=== PATIENT | female | born 1935 | race Caucasian/White ===

== ENCOUNTER 2017-08-15 18:24 | Inpatient (IN) | payer MEDICARE, BC ==
[~2017-08-15] VITALS: Ht 157.5 cm; Wt 65.8 kg
[2017-08-15 19:30] VITALS: BP 157/47
[2017-08-15 20:30] VITALS: BP 148/63
[2017-08-15] MEDS ORDERED: [UNRECOGNIZED DRUG - CODE] GT (21:12)
[2017-08-15] MEDS ORDERED: SITA50TA GT (21:12)
[2017-08-15] MEDS ORDERED: FURO40TA5 GT (21:12)
[2017-08-15] MEDS ORDERED: METO75TA GT (21:12)
[2017-08-15] MEDS ORDERED: PYRI60TA2 GT (21:12)
[2017-08-15] MEDS ORDERED: ASPI-612 RC (21:12)
[2017-08-15] MEDS ORDERED: AMLO10TA2 GT (21:12)
[2017-08-15] MEDS ORDERED: PIPE3.376 IV (21:12)
[2017-08-15] MEDS ORDERED: GLYC2TAB2 GT (21:12)
[2017-08-15] MEDS ORDERED: PRED20TA GT (21:12)
[2017-08-15] MEDS ORDERED: PYRI60TA2 IV (21:51)
[2017-08-15] MEDS ORDERED: hydrALAZINE HCL 25 MG TABLET GT PRN (22:45)
[2017-08-15] MEDS ORDERED: BISACODYL 10 MG SUPP.RECT RC PRN (22:45)
[2017-08-15] MEDS ORDERED: DEXTROSE 50% 50 ML DISP.SYRIN IV PRN (22:45)
[2017-08-15] MEDS ORDERED: ALBUTEROL SULFATE 2.5 MG/3 ML NEBU NEB PRN (22:45)
[2017-08-15] MEDS ORDERED: Z GUARD REMEDY PASTE 57 GM TUBE TOP PRN (23:00)
--- NOTE | 2017-08-15 23:00 | NUR ---
Received pt resting in bed at the beginning of shift. AAO x4. As per day shift RN, pt arrived in the unit at 1800. On 4L O2, saturation of 97%. Pt stated that she had SOB in SOH. Pt also has G- tube in placed, patent and receiving Glucerna 30 mL/hr. IV site on right hand 22 gauge, patent and intact. Howell catheter noted, draining well with yellow colored urine. Pertinent assessments done. MRSA swab sent to lab. Med recon done. Belonging's list placed in chart. Safety measures maintained. Call light and personal belongings within reach. Will continue to monitor.
[2017-08-15] MEDS ORDERED: PIPERACILLIN SODIUM/TAZO 3.375 GM VIAL IV SCH (23:30)
[2017-08-15] MEDS ORDERED: PYRIDOSTIGMINE BROMIDE 60 MG TABLET ONE (23:32)
[2017-08-15] MEDS ORDERED: PIPERACILLIN/TAZOBACTAM/D5W 50 ML IV ONE (23:32)
[2017-08-15] MEDS: PYRIDOSTIGMINE BROMIDE 60 MG TABLET GT SCH (23:43)
[2017-08-16] MEDS: BLOOD SUGAR DIAGNOSTIC 1 EACH STRIP VI SCH ×5 (00:16→23:35)
[2017-08-16] MEDS ORDERED: PIPERACILLIN/TAZOBACTAM/D5W 50 ML IV ONE (00:30)
[2017-08-16] MEDS: INSULIN REGULAR, HUMAN 300 UNIT/3 ML VIAL SQ PRN ×5 (00:31→23:26)
[2017-08-16 06:41] VITALS: BP 145/52
[2017-08-16 07:48] LABS: BASOPHILS # (AUTO) 0.1 K/uL (0.0-8.0); BASOPHILS % (AUTO) 0.8 % (0.0-2.0); EOSINOPHILS # (AUTO) 0.3 K/uL (0.0-0.7); EOSINOPHILS % (AUTO) 2.2 % (0.0-7.0); HEMATOCRIT 33.9 % (31.2-41.9); LYMPHOCYTES # (AUTO) 2.4 K/uL (20.0-40.0); MEAN CORPUSCULAR HEMOGLOBIN 29.3 uug (24.7-32.8); MEAN CORPUSCULAR HGB CONC 32 g/dL (32.3-35.6); MEAN CORPUSCULAR VOLUME 90.3 fL (75.5-95.3); MONOCYTES # (AUTO) 1.1 K/uL (2.0-10.0); MONOCYTES % (AUTO) 9.4 % (0.0-11.0); NEUTROPHILS % (AUTO) 67.6 % (38.5-71.5); PLATELET COUNT (AUTO) 377 K/uL (179-408); RED BLOOD CELL COUNT(AUTO) 3.75 MIL/uL (3.63-4.92); WHITE BLOOD COUNT (AUTO) 11.8 K/uL (3.8-11.8)
[2017-08-16 07:55] LABS: *BILIRUBIN,URIN NEGATIVE (NEGATIVE); *BLOOD, URINE 2+ (NEGATIVE); *CLARITY,URINE SLIGHTLY CLOUDY (CLEAR); *COLOR,URINE YELLOW (YELLOW); *KETONES,URINE NEGATIVE (NEGATIVE); *PROTEIN,URINE 1+ (NEGATIVE); *UROBILINOGEN,URINE 0.2 E.U./dl (NORMAL); LEUKOCYTE ESTERASE ,URINE NEGATIVE (NEGATIVE); NITRITE, URINE NEGATIVE (NEGATIVE); UGLUCOSE NEGATIVE (NEGATIVE)
[2017-08-16 07:58] LABS: BACTERIA,URINE FEW /HPF (NONE SEEN); RBC,URINE 80-100 /HPF (0-3); SQUAMOUS EPITHELIAL CELL,UR FEW /HPF (NONE SEEN)
[2017-08-16] MEDS ORDERED: Medication Not On Formulary EA (Glycopyrrolate 1 MG) GT SCH (08:00)
[2017-08-16] MEDS ORDERED: PIPERACILLIN SODIUM/TAZO 3.375 GM VIAL IV SCH (08:00)
[2017-08-16 08:09] LABS: IRON, SERUM 34 ug/dL (50-175)
[2017-08-16 08:14] VITALS: BP 151/62
[2017-08-16 08:35] LABS: ALANINE AMINOTRANSFERASE 19 U/L (14-59); ALKALINE PHOSPHATASE 108 U/L (50-136); ASPARTATE AMINOTRANSFERASE 15 U/L (15-37); BILIRUBIN,TOTAL 0.2 mg/dL (0.2-1.0); CARBON DIOXIDE 39 mmol/L (21-32); CHLORIDE 100 mmol/L (98-107); CHOLESTEROL 232 mg/dL (<200); CREATININE 1.1 mg/dL (0.6-1.3); GLUCOSE 220 mg/dL (74-106); HDL CHOLESTEROL 36 mg/dL (40-60); MAGNESIUM 2.6 mg/dL (1.8-2.4); PHOSPHOROUS 4.2 mg/dL (2.5-4.9); POTASSIUM 3.7 mmol/L (3.5-5.1); TOTAL PROTEIN, SERUM 7.1 g/dL (6.4-8.2); TRIGLYCERIDES 234 MG/DL (30-150); UREA NITROGEN, BLOOD 27 mg/dL (7-18)
[2017-08-16 08:58] LABS: THYROID STIMULATING HORMONE 0.338 mIU/mL (0.358-3.740)
[2017-08-16] MEDS ORDERED: MULTIVITAMINS 5 ML LIQUID UDC GT SCH (09:00)
[2017-08-16] MEDS: PIPERACILLIN/TAZOBACTAM/D5W 3.375 G in PREMIXED 1 EACH IV SCH ×3 (10:23→21:08)
[2017-08-16] MEDS: MULTIVITAMINS,THERAPEUTIC TABLET GT SCH (10:33)
[2017-08-16] MEDS: ACIDOPHILUS/BULGARICUS CHEW TAB GT SCH ×2 (10:33→20:56)
[2017-08-16] MEDS: predniSONE 20 MG TABLET GT SCH (10:35)
[2017-08-16] MEDS: AMLODIPINE 10 MG TABLET GT SCH (10:36)
[2017-08-16] MEDS: METOPROLOL TARTRATE 50 MG TABLET GT SCH ×2 (10:36→20:57)
[2017-08-16] MEDS: GLYCOPYRROLATE 1 MG TABLET GT SCH ×3 (10:37→17:19)
[2017-08-16] MEDS: PYRIDOSTIGMINE BROMIDE 60 MG TABLET GT SCH ×3 (10:37→17:20)
[2017-08-16] MEDS: FUROSEMIDE 40 MG TABLET GT SCH (10:37)
[2017-08-16] MEDS ORDERED: GLUCERNA 1.2 1000ML LIQUID GT PRN (11:45)
[2017-08-16] MEDS ORDERED: SITAGLIPTIN PHOSPHATE 50 MG TABLET GT SCH (12:45)
[2017-08-16] MEDS: LINAGLIPTIN 5 MG TABLET GT SCH (13:33)
[2017-08-16 16:50] VITALS: BP 100/58
[2017-08-16] MEDS ORDERED: ALBUTEROL SULFATE 2.5 MG/ 0.5 ML NEBU NEB PRN (17:00)
[2017-08-16] MEDS ORDERED: IPRATROPIUM BROMIDE 0.5 MG/2.5 ML NEBU NEB PRN (17:00)
[2017-08-16] MEDS ORDERED: DEXTROSE 50% 50 ML DISP.SYRIN IV PRN (17:15)
--- NOTE | 2017-08-16 18:54 | NUR ---
SBAR report received this morning, board updated. Pt assessed. No acute distress noted. Productive cough evident. VS WNL. Pt compliant with all routine medication administration, via GTube. PRN breathing Tx provided once as needed. Pt seen by MD. All comfort and safety measures implemented throughout this shift. Call light and personal items placed within reach. Family members visiting at the bedside currently. Will continue to monitor and endorse to oncoming manager shift.
[2017-08-16] MEDS: ALBUTEROL SULFATE 2.5 MG/ 0.5 ML NEBU NEB SCH (19:30)
[2017-08-16] MEDS: IPRATROPIUM BROMIDE 0.5 MG/2.5 ML NEBU NEB SCH (19:30)
--- NOTE | 2017-08-16 19:50 | NUR ---
Received pt resting in bed. AAO x3. Family at bedside. No acute distress noted. On 3L O2 via NC, tolerating well. Glucerna running at 30 mL/ hr via G- tube. IV line patent and intact. Howell catheter draining well with yellow colored urine. Safety measures maintained. Call light and personal belongings within reach. Will continue to monitor.
[2017-08-16 20:28] VITALS: BP 139/52
[2017-08-16] MEDS: ATORVASTATIN 20 MG TABLET GT SCH (20:56)
[2017-08-17] MEDS: IPRATROPIUM BROMIDE 0.5 MG/2.5 ML NEBU NEB SCH ×4 (00:46→19:17)
[2017-08-17] MEDS: ALBUTEROL SULFATE 2.5 MG/ 0.5 ML NEBU NEB SCH ×4 (00:46→19:17)
[2017-08-17 05:00] VITALS: BP 138/48
[2017-08-17] MEDS: BLOOD SUGAR DIAGNOSTIC 1 EACH STRIP VI SCH ×3 (05:05→18:12)
[2017-08-17] MEDS: INSULIN REGULAR, HUMAN 300 UNIT/3 ML VIAL SQ PRN ×3 (05:06→18:23)
[2017-08-17] MEDS: PIPERACILLIN/TAZOBACTAM/D5W 3.375 G in PREMIXED 1 EACH IV SCH ×3 (05:27→21:42)
--- NOTE | 2017-08-17 07:53 | NUR ---
SBAR report received, board updated. Pt assessed AAO x3. No acute distress or SOB noted at this time. Pt breathing easily on 3L NC. Glucerna running at 30ml/hr via G tube. IV line on right forearm patent and intact. No c/o pain. All safety and comfort measures implemented. Bed in locked and lowest position with side rails up x2. Call light placed within reach. Will continue to monitor.
[2017-08-17 07:57] VITALS: BP 136/53
[2017-08-17] MEDS ORDERED: LINAGLIPTIN 5 MG TABLET PO SCH (09:00)
[2017-08-17] MEDS: MULTIVITAMINS,THERAPEUTIC TABLET GT SCH (09:48)
[2017-08-17] MEDS: predniSONE 20 MG TABLET GT SCH (09:48)
[2017-08-17] MEDS: ACIDOPHILUS/BULGARICUS CHEW TAB GT SCH ×2 (09:48→21:42)
[2017-08-17] MEDS: FUROSEMIDE 40 MG TABLET GT SCH (09:49)
[2017-08-17] MEDS: METOPROLOL TARTRATE 50 MG TABLET GT SCH ×2 (09:49→21:42)
[2017-08-17] MEDS: GLYCOPYRROLATE 1 MG TABLET GT SCH ×3 (09:49→18:00)
[2017-08-17] MEDS: PYRIDOSTIGMINE BROMIDE 60 MG TABLET GT SCH ×3 (09:49→18:00)
[2017-08-17] MEDS: LINAGLIPTIN 5 MG TABLET GT SCH (09:49)
[2017-08-17] MEDS: AMLODIPINE 10 MG TABLET GT SCH (09:50)
[2017-08-17 20:50] VITALS: BP 128/63
[2017-08-17] MEDS: ATORVASTATIN 20 MG TABLET GT SCH (21:42)
[2017-08-17] MEDS: MELATONIN 3 MG TABLET PO SCH (21:49)
[2017-08-18] MEDS: BLOOD SUGAR DIAGNOSTIC 1 EACH STRIP VI SCH ×5 (00:14→23:44)
[2017-08-18] MEDS: IPRATROPIUM BROMIDE 0.5 MG/2.5 ML NEBU NEB SCH ×5 (01:25→20:26)
[2017-08-18] MEDS: ALBUTEROL SULFATE 2.5 MG/ 0.5 ML NEBU NEB SCH ×5 (01:25→20:26)
--- NOTE | 2017-08-18 04:37 | NUR ---
awake alert and oriented x4 admitted for myasthenia gravis. Fall precautions maintained. siderails up for safety. Patient on tubefeedings. Gtube intact, on Glucerna @30ml/hr. HOB at all times. NPO maintained. On blood sugar check q6hrs. 12mn BS 123. Howell catheter intact draining yellow urine. I & O monitor.Repositioned for comfort. Turned to sides. Right arm INT, on IV Zosyn for pnemonia. No ill effects noted. Respiratory treatment given by therapist. VSS. pulse ox 96% on 4L O2 via nasal cannula. no respiratory distress noted. Will monitor patient.
[2017-08-18] MEDS: PIPERACILLIN/TAZOBACTAM/D5W 3.375 G in PREMIXED 1 EACH IV SCH ×3 (05:29→21:45)
[2017-08-18] MEDS: INSULIN REGULAR, HUMAN 300 UNIT/3 ML VIAL SQ PRN ×3 (05:40→17:53)
[2017-08-18 05:59] VITALS: BP 119/58
[2017-08-18 08:00] VITALS: BP 107/46
[2017-08-18 08:00] LABS: BASOPHILS # (AUTO) 0.1 K/uL (0.0-8.0); BASOPHILS % (AUTO) 0.6 % (0.0-2.0); EOSINOPHILS # (AUTO) 0.3 K/uL (0.0-0.7); HEMATOCRIT 33.1 % (31.2-41.9); HEMOGLOBIN 11.1 g/dL (10.9-14.3); LYMPHOCYTES # (AUTO) 2.5 K/uL (20.0-40.0); LYMPHOCYTES % (AUTO) 17.6 % (20.5-51.5); MEAN CORPUSCULAR HGB CONC 33 g/dL (32.3-35.6); MEAN CORPUSCULAR VOLUME 89.7 fL (75.5-95.3); MONOCYTES # (AUTO) 1.1 K/uL (2.0-10.0); MONOCYTES % (AUTO) 7.8 % (0.0-11.0); NEUTROPHILS # (AUTO) 10.3 K/uL (1.8-8.9); PLATELET COUNT (AUTO) 390 K/uL (179-408); RED BLOOD CELL COUNT(AUTO) 3.69 MIL/uL (3.63-4.92); WHITE BLOOD COUNT (AUTO) 14.3 K/uL (3.8-11.8)
[2017-08-18 08:10] LABS: CHLORIDE 99 mmol/L (98-107); CREATININE 1.4 mg/dL (0.6-1.3); GLUCOSE 155 mg/dL (74-106); POTASSIUM 3.4 mmol/L (3.5-5.1); UREA NITROGEN, BLOOD 35 mg/dL (7-18)
[2017-08-18 08:15] LABS: CARBON DIOXIDE 41 mmol/L (21-32)
--- NOTE | 2017-08-18 08:51 | NUR ---
SBAR report received, board updated. Pt assessed, no acute distress. Critical lab value of carbon dioxide 41 from lab. Epic called, left message. will continue to monitor and follow up. All needs attended to at this time. Bed in locked and lowest position with call light in reach. Will continue to monitor.
[2017-08-18] MEDS: AMLODIPINE 10 MG TABLET GT SCH (09:00)
[2017-08-18] MEDS: METOPROLOL TARTRATE 50 MG TABLET GT SCH ×2 (09:00→21:36)
--- NOTE | 2017-08-18 09:37 | NUR ---
Pt in acute distress, resting in bed, breathing unlabored. MD special technical operations officer paged again, awaiting follow up orders. Will continue to monitor.
[2017-08-18] MEDS: LINAGLIPTIN 5 MG TABLET GT SCH (10:16)
[2017-08-18] MEDS: GLYCOPYRROLATE 1 MG TABLET GT SCH ×3 (10:16→17:38)
[2017-08-18] MEDS: PYRIDOSTIGMINE BROMIDE 60 MG TABLET GT SCH ×3 (10:16→17:39)
[2017-08-18] MEDS: ACIDOPHILUS/BULGARICUS CHEW TAB GT SCH ×2 (10:16→21:38)
[2017-08-18] MEDS: predniSONE 20 MG TABLET GT SCH (10:17)
[2017-08-18] MEDS: FUROSEMIDE 40 MG TABLET GT SCH (10:17)
[2017-08-18] MEDS: MULTIVITAMINS,THERAPEUTIC TABLET GT SCH (10:23)
[2017-08-18] MEDS ORDERED: POTASSIUM CHLORIDE 50 ML IV SCH (14:15)
[2017-08-18] MEDS ORDERED: POTASSIUM CHLORIDE 20 MEQ POWDER PACKET GT ONE (15:15)
[2017-08-18 16:00] VITALS: BP 131/47
[2017-08-18 20:11] VITALS: BP 139/49
[2017-08-18] MEDS: ATORVASTATIN 20 MG TABLET GT SCH (21:35)
[2017-08-18] MEDS: MELATONIN 3 MG TABLET PO SCH (21:38)
[2017-08-19] MEDS: ALBUTEROL SULFATE 2.5 MG/ 0.5 ML NEBU NEB SCH ×4 (02:46→20:08)
[2017-08-19] MEDS: IPRATROPIUM BROMIDE 0.5 MG/2.5 ML NEBU NEB SCH ×4 (02:46→20:07)
[2017-08-19] MEDS: PIPERACILLIN/TAZOBACTAM/D5W 3.375 G in PREMIXED 1 EACH IV SCH ×3 (05:51→21:03)
[2017-08-19 05:59] VITALS: BP 144/68
[2017-08-19] MEDS: BLOOD SUGAR DIAGNOSTIC 1 EACH STRIP VI SCH ×4 (05:59→23:19)
--- NOTE | 2017-08-19 06:33 | NUR ---
Report received from day shift nurse , Pt slept most of the night , Changed new Supplement of Glycerna to her G tube at 30 mL / hr . pt does self suction , A & O x 4 , pt received Zosyn at 2200 and then at 0600 , Pt had a blood sugar of 98 and required no coverage . At 0600 , pt had a blood sugar of 137 . Pt c/o of right ear pain towards the end of the shift , will continue to monitor and endorse to day shift. Crushed meds and given in the G tube at 2100 and flushed the G tube before and after giving meds
[2017-08-19 07:12] LABS: BASOPHILS # (AUTO) 0.1 K/uL (0.0-8.0); BASOPHILS % (AUTO) 0.9 % (0.0-2.0); EOSINOPHILS # (AUTO) 0.2 K/uL (0.0-0.7); EOSINOPHILS % (AUTO) 1.8 % (0.0-7.0); HEMATOCRIT 32.8 % (31.2-41.9); HEMOGLOBIN 10.7 g/dL (10.9-14.3); LYMPHOCYTES # (AUTO) 2.1 K/uL (20.0-40.0); LYMPHOCYTES % (AUTO) 19.3 % (20.5-51.5); MEAN CORPUSCULAR HEMOGLOBIN 29.4 uug (24.7-32.8); MEAN CORPUSCULAR HGB CONC 33 g/dL (32.3-35.6); MEAN CORPUSCULAR VOLUME 90.2 fL (75.5-95.3); MONOCYTES # (AUTO) 0.8 K/uL (2.0-10.0); MONOCYTES % (AUTO) 7.6 % (0.0-11.0); NEUTROPHILS # (AUTO) 7.5 K/uL (1.8-8.9); NEUTROPHILS % (AUTO) 70.4 % (38.5-71.5); PLATELET COUNT (AUTO) 402 K/uL (179-408); RED BLOOD CELL COUNT(AUTO) 3.64 MIL/uL (3.63-4.92); WHITE BLOOD COUNT (AUTO) 10.7 K/uL (3.8-11.8)
[2017-08-19 07:22] LABS: CHLORIDE 101 mmol/L (98-107); CREATININE 1.3 mg/dL (0.6-1.3); GLUCOSE 155 mg/dL (74-106); POTASSIUM 3.6 mmol/L (3.5-5.1); UREA NITROGEN, BLOOD 31 mg/dL (7-18)
[2017-08-19 07:31] LABS: CARBON DIOXIDE 40 mmol/L (21-32)
--- NOTE | 2017-08-19 07:35 | NUR ---
Critical lab of CO2-40. Informed Dr Park, no new orders at this time.
[2017-08-19] MEDS: INSULIN REGULAR, HUMAN 300 UNIT/3 ML VIAL SQ PRN ×4 (08:07→23:20)
[2017-08-19 08:35] VITALS: BP 137/44
[2017-08-19] MEDS: predniSONE 20 MG TABLET GT SCH (09:00)
[2017-08-19] MEDS: ACIDOPHILUS/BULGARICUS CHEW TAB GT SCH ×2 (09:00→20:35)
[2017-08-19] MEDS: MULTIVITAMINS,THERAPEUTIC TABLET GT SCH (09:00)
[2017-08-19] MEDS: PYRIDOSTIGMINE BROMIDE 60 MG TABLET GT SCH ×3 (09:04→18:00)
[2017-08-19] MEDS: GLYCOPYRROLATE 1 MG TABLET GT SCH ×3 (09:04→18:00)
[2017-08-19] MEDS: FUROSEMIDE 40 MG TABLET GT SCH (09:04)
[2017-08-19] MEDS: LINAGLIPTIN 5 MG TABLET GT SCH (09:05)
[2017-08-19] MEDS: AMLODIPINE 10 MG TABLET GT SCH (09:06)
[2017-08-19] MEDS: METOPROLOL TARTRATE 50 MG TABLET GT SCH ×2 (09:06→20:36)
--- NOTE | 2017-08-19 10:30 | NUR ---
Paged LYNNETTE Worthy for critical lab, awaiting for call back.
[2017-08-19] MEDS: ACETAMINOPHEN 325 MG TABLET PO PRN (10:34)
--- NOTE | 2017-08-19 14:15 | NUR ---
SEEN AND EXAMINED BY DR. LEWIS. INCREASED TUBE FEEDING TO 50 MLS/HR.
[2017-08-19] MEDS ORDERED: GLUCERNA 1.2 1000ML LIQUID GT PRN (16:00)
[2017-08-19] MEDS: GUAIFENESIN SUGAR FREE 100 MG/5 ML UDC GT PRN (18:32)
[2017-08-19 20:29] VITALS: BP 137/65
[2017-08-19] MEDS: ATORVASTATIN 20 MG TABLET GT SCH (20:35)
[2017-08-19] MEDS: MELATONIN 3 MG TABLET PO SCH (20:36)
[2017-08-20] MEDS: IPRATROPIUM BROMIDE 0.5 MG/2.5 ML NEBU NEB SCH ×5 (01:45→19:05)
[2017-08-20] MEDS: ALBUTEROL SULFATE 2.5 MG/ 0.5 ML NEBU NEB SCH ×5 (01:45→19:05)
--- NOTE | 2017-08-20 04:26 | NUR ---
on continous Glucerna feedings @ 50ml/hr via G-tube. HOB at all times. On O2 @ 2L via nasal cannula, pulse ox 96%. No respiratory distress noted. Oral suction done by patient, moderate amount of secretions noted. Fall precautions maintained. Incontinent of bowel and bladder. Kept clean and dry. Repositioned for comfort. Turned from sides to sides. afebrile. Right arm INT flushed and patent, IV antibiotics given as scheduled. No ill effects noted. Will monitor patient.
[2017-08-20 05:15] VITALS: BP 143/60
[2017-08-20] MEDS: BLOOD SUGAR DIAGNOSTIC 1 EACH STRIP VI SCH ×4 (05:24→23:12)
[2017-08-20] MEDS: PIPERACILLIN/TAZOBACTAM/D5W 3.375 G in PREMIXED 1 EACH IV SCH ×3 (05:24→21:24)
[2017-08-20] MEDS: INSULIN REGULAR, HUMAN 300 UNIT/3 ML VIAL SQ PRN ×4 (05:26→23:17)
[2017-08-20 08:00] VITALS: BP 154/59
[2017-08-20] MEDS: LINAGLIPTIN 5 MG TABLET GT SCH (08:16)
[2017-08-20] MEDS: ACIDOPHILUS/BULGARICUS CHEW TAB GT SCH ×2 (08:16→21:21)
[2017-08-20] MEDS: GLYCOPYRROLATE 1 MG TABLET GT SCH ×3 (08:16→18:18)
[2017-08-20] MEDS: AMLODIPINE 10 MG TABLET GT SCH (08:16)
[2017-08-20] MEDS: MULTIVITAMINS,THERAPEUTIC TABLET GT SCH (08:17)
[2017-08-20] MEDS: FUROSEMIDE 40 MG TABLET GT SCH (08:17)
[2017-08-20] MEDS: predniSONE 20 MG TABLET GT SCH (08:17)
[2017-08-20] MEDS: METOPROLOL TARTRATE 50 MG TABLET GT SCH ×2 (08:17→21:21)
--- NOTE | 2017-08-20 08:20 | NUR ---
Received patient, awake alert x4. With intact Howell draining to Yellow colored urine. With G-tube feeding, flushed with medications accordingly. Not in any pain. No chest pains or SOB noted. Cough improved from yesterday.
[2017-08-20] MEDS: PYRIDOSTIGMINE BROMIDE 60 MG TABLET GT SCH ×3 (08:22→18:18)
--- NOTE | 2017-08-20 08:59 | NUR ---
Tube feeding changed, Glucerna as ordered.
[2017-08-20] MEDS: ACETAMINOPHEN 325 MG TABLET PO PRN (10:44)
--- NOTE | 2017-08-20 13:47 | NUR ---
INTERDISCIPLINARY TEAM CONFERENCE
--- NOTE | 2017-08-20 15:00 | NUR ---
Patient refused physical therapy and claims she is very tired today and has something on her nostrils. Checked nostrils, instructed patient not scratch inside nostrils too much because it may cause bleeding.
[2017-08-20] MEDS: GLUCERNA 1.2 1000ML LIQUID GT PRN (19:59)
[2017-08-20 20:01] VITALS: BP 156/41
[2017-08-20] MEDS: ATORVASTATIN 20 MG TABLET GT SCH (21:21)
--- NOTE | 2017-08-20 22:09 | NUR ---
Received pt resting in bed. AAO x3. No acute distress noted. On 2L O2 via NC, saturating well. No c/o pain or discomfort. G-tube patent and intact. Meds given as ordered. Howell catheter draining well with yellow colored urine. IV site patent, flushing well. Safety measures maintained. Call light and personal belongings within reach. Will continue to monitor.
[2017-08-20] MEDS: MELATONIN 3 MG TABLET PO SCH (23:18)
[2017-08-20] MEDS: GUAIFENESIN SUGAR FREE 100 MG/5 ML UDC GT PRN (23:19)
[2017-08-21] MEDS: ALBUTEROL SULFATE 2.5 MG/ 0.5 ML NEBU NEB SCH ×4 (01:13→18:56)
[2017-08-21] MEDS: IPRATROPIUM BROMIDE 0.5 MG/2.5 ML NEBU NEB SCH ×4 (01:13→18:56)
[2017-08-21 05:00] VITALS: BP 152/62
[2017-08-21] MEDS: BLOOD SUGAR DIAGNOSTIC 1 EACH STRIP VI SCH ×3 (05:23→17:19)
[2017-08-21] MEDS: INSULIN REGULAR, HUMAN 300 UNIT/3 ML VIAL SQ PRN ×3 (05:24→17:22)
[2017-08-21] MEDS: PIPERACILLIN/TAZOBACTAM/D5W 3.375 G in PREMIXED 1 EACH IV SCH ×3 (05:26→21:23)
[2017-08-21 06:54] LABS: BASOPHILS # (AUTO) 0.1 K/uL (0.0-8.0); BASOPHILS % (AUTO) 0.8 % (0.0-2.0); EOSINOPHILS # (AUTO) 0.3 K/uL (0.0-0.7); EOSINOPHILS % (AUTO) 2.6 % (0.0-7.0); HEMATOCRIT 35.1 % (31.2-41.9); HEMOGLOBIN 11.6 g/dL (10.9-14.3); LYMPHOCYTES # (AUTO) 2.3 K/uL (20.0-40.0); LYMPHOCYTES % (AUTO) 20.8 % (20.5-51.5); MEAN CORPUSCULAR HEMOGLOBIN 29.6 uug (24.7-32.8); MEAN CORPUSCULAR HGB CONC 33 g/dL (32.3-35.6); MEAN CORPUSCULAR VOLUME 89.2 fL (75.5-95.3); MONOCYTES # (AUTO) 0.9 K/uL (2.0-10.0); MONOCYTES % (AUTO) 8.5 % (0.0-11.0); NEUTROPHILS # (AUTO) 7.5 K/uL (1.8-8.9); NEUTROPHILS % (AUTO) 67.3 % (38.5-71.5); PLATELET COUNT (AUTO) 398 K/uL (179-408); RED BLOOD CELL COUNT(AUTO) 3.93 MIL/uL (3.63-4.92); WHITE BLOOD COUNT (AUTO) 11.1 K/uL (3.8-11.8)
[2017-08-21 07:01] LABS: CHLORIDE 100 mmol/L (98-107); CREATININE 1.3 mg/dL (0.6-1.3); GLUCOSE 211 mg/dL (74-106); POTASSIUM 3.4 mmol/L (3.5-5.1); UREA NITROGEN, BLOOD 31 mg/dL (7-18)
[2017-08-21 07:02] LABS: CARBON DIOXIDE 40 mmol/L (21-32)
[2017-08-21] MEDS: ACIDOPHILUS/BULGARICUS CHEW TAB GT SCH ×2 (08:28→21:23)
[2017-08-21] MEDS: FUROSEMIDE 40 MG TABLET GT SCH (08:29)
[2017-08-21] MEDS: METOPROLOL TARTRATE 50 MG TABLET GT SCH ×2 (08:29→21:23)
[2017-08-21] MEDS: MULTIVITAMINS,THERAPEUTIC TABLET GT SCH (08:29)
[2017-08-21] MEDS: PYRIDOSTIGMINE BROMIDE 60 MG TABLET GT SCH ×3 (08:29→17:17)
[2017-08-21] MEDS: AMLODIPINE 10 MG TABLET GT SCH (08:30)
[2017-08-21] MEDS: GLYCOPYRROLATE 1 MG TABLET GT SCH ×3 (08:30→17:17)
[2017-08-21] MEDS: LINAGLIPTIN 5 MG TABLET GT SCH (08:30)
[2017-08-21] MEDS: GLUCERNA 1.2 1000ML LIQUID GT PRN (09:00)
[2017-08-21] MEDS: predniSONE 20 MG TABLET GT SCH (09:27)
[2017-08-21 09:41] VITALS: BP 153/58
--- NOTE | 2017-08-21 10:23 | NUR ---
pt seen on rounding. pt vitals stable. no changes. pt able to verbalize needs. tube feeding changes. will continue to monitor.
[2017-08-21] MEDS: GUAIFENESIN SUGAR FREE 100 MG/5 ML UDC GT PRN (13:10)
[2017-08-21] MEDS ORDERED: POTASSIUM CHLORIDE 20 MEQ POWDER PACKET PO ONE (14:00)
[2017-08-21 20:00] VITALS: BP 110/44
[2017-08-21] MEDS ORDERED: DIAZEPAM 2 MG TABLET GT ONE (20:15)
--- NOTE | 2017-08-21 20:15 | NUR ---
PT EXPLAINED CANNOT SLEEP LAST FEW NIGHT MELATONIN NOT HELPING, SPOKE WITH DR VALLECILLO EXPLAINED SHE DOES NOT WANT AMBIEN AND SHE TAKES 4MG VALIUM AT HOME FOR SLEEP. WILL GIVE MEDICATION ORDERED.
--- NOTE | 2017-08-21 21:00 | NUR ---
PT REQUESTING TO HAVE VALIUM AT 2330 FOR SLEEP. WILL GIVE AT THAT TIME. Addendum: 08/22/17 at 0313 by DIPAK TRAN RN AND ANXIETY
[2017-08-21] MEDS: ATORVASTATIN 20 MG TABLET GT SCH (21:23)
[2017-08-21 21:24] VITALS: BP 151/55
[2017-08-21 21:30] VITALS: BP 151/55
[2017-08-22] VITALS: BP 123/55
[2017-08-22] MEDS: BLOOD SUGAR DIAGNOSTIC 1 EACH STRIP VI SCH ×5 (00:03→23:22)
[2017-08-22] MEDS: INSULIN REGULAR, HUMAN 300 UNIT/3 ML VIAL SQ PRN ×5 (00:10→23:24)
[2017-08-22] MEDS ORDERED: DIAZEPAM 2 MG TABLET ONE (00:11)
[2017-08-22] MEDS: ALBUTEROL SULFATE 2.5 MG/ 0.5 ML NEBU NEB SCH ×4 (01:05→19:16)
[2017-08-22] MEDS: IPRATROPIUM BROMIDE 0.5 MG/2.5 ML NEBU NEB SCH ×4 (01:05→19:16)
[2017-08-22] MEDS: ACETAMINOPHEN 325 MG TABLET PO PRN (04:59)
[2017-08-22] MEDS: PIPERACILLIN/TAZOBACTAM/D5W 3.375 G in PREMIXED 1 EACH IV SCH ×3 (05:00→21:45)
[2017-08-22 05:48] VITALS: BP 160/62
[2017-08-22] MEDS: GLUCERNA 1.2 1000ML LIQUID GT PRN (06:54)
--- NOTE | 2017-08-22 07:19 | NUR ---
PT RESTING IN BED. NO DISTRESS NOTED. BS 144. 2 UNITS GIVEN PER ORDERS. HEAD OF BED ELEVATED, TOLERATING TUBE FEEDING WELL WITH 3CC OF RESIDUAL. MENDOZA DRAINING CLEAR YELLOW URINE. CLEAN AND DRY. TURNED AND REPOSITIONED. SAFETY MAINTAINED. CALL LIGHT WITHIN REACH.
[2017-08-22 08:22] LABS: CARBON DIOXIDE 38 mmol/L (21-32); CHLORIDE 100 mmol/L (98-107); CREATININE 1.5 mg/dL (0.6-1.3); GLUCOSE 146 mg/dL (74-106); POTASSIUM 3.4 mmol/L (3.5-5.1); UREA NITROGEN, BLOOD 38 mg/dL (7-18)
[2017-08-22] MEDS: METOPROLOL TARTRATE 50 MG TABLET GT SCH ×2 (09:00→21:44)
[2017-08-22] MEDS: GUAIFENESIN SUGAR FREE 100 MG/5 ML UDC GT PRN (09:01)
[2017-08-22] MEDS: MULTIVITAMINS,THERAPEUTIC TABLET GT SCH (09:01)
[2017-08-22] MEDS: AMLODIPINE 10 MG TABLET GT SCH (09:04)
[2017-08-22] MEDS: FUROSEMIDE 40 MG TABLET GT SCH (09:04)
[2017-08-22] MEDS: ACIDOPHILUS/BULGARICUS CHEW TAB GT SCH ×2 (09:05→21:44)
[2017-08-22] MEDS: PYRIDOSTIGMINE BROMIDE 60 MG TABLET GT SCH ×3 (09:06→17:35)
[2017-08-22] MEDS: GLYCOPYRROLATE 1 MG TABLET GT SCH ×3 (09:06→17:34)
[2017-08-22] MEDS: LINAGLIPTIN 5 MG TABLET GT SCH (09:06)
[2017-08-22 09:36] VITALS: BP 134/46
[2017-08-22] MEDS: predniSONE 20 MG TABLET GT SCH (13:03)
[2017-08-22] MEDS ORDERED: POTASSIUM CHLORIDE 20 MEQ POWDER PACKET GT ONE (14:15)
[2017-08-22] MEDS ORDERED: DIAZ2TAB PO (16:04)
--- NOTE | 2017-08-22 18:04 | NUR ---
pt stable thoughout the day. pt requested to have valium at night. pt given meds through gtube. feedings tolerated well. intructed family about not giving anything by mouth to patient. pt family continues to be non compliant. pt continues to show productive cough. white and thin secretion. will endorse to sales applications engineer nurse.
--- NOTE | 2017-08-22 19:00 | NUR ---
Awake during initial rounds. Very pleasant and calm. Denies any pain/discomforts at this time. HOB elevated with 2L O2 via NC, saturating 98% .Able to suction self with yankeur. No s/s of aspiration. GT feeding continuos via Enteral pump. No gastric residual obtained at this time. HL on RAC intact and patent , no s/s of infiltration. F/C intact and patent. Continue care as planned.
[2017-08-22] MEDS ORDERED: DIAZEPAM 2 MG TABLET PO PRN (19:30)
[2017-08-22 20:47] VITALS: BP 136/57
[2017-08-22] MEDS ORDERED: DIAZEPAM 2 MG TABLET PO SCH (21:00)
[2017-08-22] MEDS: ATORVASTATIN 20 MG TABLET GT SCH (21:44)
[2017-08-23] MEDS: ALBUTEROL SULFATE 2.5 MG/ 0.5 ML NEBU NEB SCH ×6 (01:00→22:58)
[2017-08-23] MEDS: IPRATROPIUM BROMIDE 0.5 MG/2.5 ML NEBU NEB SCH ×6 (01:00→22:57)
[2017-08-23] MEDS: GUAIFENESIN SUGAR FREE 100 MG/5 ML UDC GT PRN ×2 (04:27→23:14)
[2017-08-23] MEDS: GLUCERNA 1.2 1000ML LIQUID GT PRN (04:37)
--- NOTE | 2017-08-23 04:54 | NUR ---
Awakened complaining of gas discomforts, turned and repositioned to sides. Will monitor.
[2017-08-23 05:16] VITALS: BP 143/64
[2017-08-23] MEDS: PIPERACILLIN/TAZOBACTAM/D5W 3.375 G in PREMIXED 1 EACH IV SCH ×3 (05:47→21:10)
[2017-08-23] MEDS: BLOOD SUGAR DIAGNOSTIC 1 EACH STRIP VI SCH ×4 (05:47→23:25)
--- NOTE | 2017-08-23 06:16 | NUR ---
Shift End Report: VS stable. Slept in between care. No further complaint presented. All needs attended. NO fall/injury. No respiratory distress. No s/s of aspiration. Tolerating GT feeding well. No s/s of hypo/hyperglycemia. No s/s of adverse reaction noted from Zosyn antibiotic. Continue current plan of care.
[2017-08-23 07:44] LABS: NEUTROPHILS % (AUTO) 76.6 % (38.5-71.5); RED BLOOD CELL COUNT(AUTO) 3.68 MIL/uL (3.63-4.92)
[2017-08-23 07:54] LABS: BASOPHILS % (AUTO) 0.3 % (0.0-2.0); EOSINOPHILS # (AUTO) 0.1 K/uL (0.0-0.7); EOSINOPHILS % (AUTO) 0.9 % (0.0-7.0); HEMATOCRIT 32.8 % (31.2-41.9); HEMOGLOBIN 10.7 g/dL (10.9-14.3); LYMPHOCYTES # (AUTO) 2.2 K/uL (20.0-40.0); LYMPHOCYTES % (AUTO) 15.2 % (20.5-51.5); MEAN CORPUSCULAR HEMOGLOBIN 29.2 uug (24.7-32.8); MEAN CORPUSCULAR HGB CONC 33 g/dL (32.3-35.6); MEAN CORPUSCULAR VOLUME 89.2 fL (75.5-95.3); NEUTROPHILS # (AUTO) 11.1 K/uL (1.8-8.9); PLATELET COUNT (AUTO) 365 K/uL (179-408)
[2017-08-23 07:55] LABS: WHITE BLOOD COUNT (AUTO) 14.5 K/uL (3.8-11.8)
--- NOTE | 2017-08-23 07:56 | NUR ---
RECEIVED PATIENT AWAKE, ALERT AND ORIENTEDX4. CONTINUE ON MENDOZA CATHETER INTACT AND GTUBE FEEDING. NO SIGNS OF INFECTION ON SITE. SUCTION PRN. VERBALIZE" IM TIRED, WANT TO SLEEP MORE. NOT IN DISTRESS. VALIUM GIVEN NIGHT TIME. WILL CONTINUE MONITOR
[2017-08-23 08:00] VITALS: BP 122/72
[2017-08-23 08:03] LABS: MAGNESIUM 2.4 mg/dL (1.8-2.4)
[2017-08-23] MEDS: AMLODIPINE 10 MG TABLET GT SCH (08:49)
[2017-08-23] MEDS: FUROSEMIDE 40 MG TABLET GT SCH (08:49)
[2017-08-23] MEDS: METOPROLOL TARTRATE 50 MG TABLET GT SCH ×2 (08:49→20:36)
[2017-08-23] MEDS: ACIDOPHILUS/BULGARICUS CHEW TAB GT SCH ×2 (08:49→20:36)
[2017-08-23] MEDS: MULTIVITAMINS,THERAPEUTIC TABLET GT SCH (08:49)
[2017-08-23] MEDS: LINAGLIPTIN 5 MG TABLET GT SCH (08:51)
[2017-08-23] MEDS: GLYCOPYRROLATE 1 MG TABLET GT SCH ×3 (08:51→17:39)
[2017-08-23] MEDS: PYRIDOSTIGMINE BROMIDE 60 MG TABLET GT SCH ×3 (08:51→17:39)
[2017-08-23] MEDS: predniSONE 20 MG TABLET GT SCH (08:58)
[2017-08-23] MEDS: INSULIN REGULAR, HUMAN 300 UNIT/3 ML VIAL SQ PRN ×3 (11:57→23:24)
[2017-08-23] MEDS: ACETAMINOPHEN 325 MG TABLET PO PRN ×2 (16:28→23:14)
[2017-08-23 16:32] VITALS: BP 119/56
[2017-08-23] MEDS: ATORVASTATIN 20 MG TABLET GT SCH (20:36)
[2017-08-23 20:40] VITALS: BP 134/52
--- NOTE | 2017-08-23 21:49 | NUR ---
resting in bed. alert and oriented x4. needs attended. VSS. gtube intact, on glucerna @ 50ml/hr. HOB up at all times. no acute distress noted. repositioned for comfort. turned q 2hrs. gaona catheter intact draining yellow urine, will d/c gaona in am. kept comfortable. will monitor patient. siderails up for safety.
[2017-08-23] MEDS: MELATONIN 3 MG TABLET PO SCH (23:15)
[2017-08-24] MEDS: PIPERACILLIN/TAZOBACTAM/D5W 3.375 G in PREMIXED 1 EACH IV SCH ×2 (05:20→14:08)
[2017-08-24] MEDS: BLOOD SUGAR DIAGNOSTIC 1 EACH STRIP VI SCH ×4 (05:26→23:52)
[2017-08-24] MEDS: INSULIN REGULAR, HUMAN 300 UNIT/3 ML VIAL SQ PRN ×4 (05:29→23:36)
[2017-08-24 06:36] VITALS: BP 140/58
--- NOTE | 2017-08-24 06:52 | NUR ---
slept well no acute distress noted. needs attended. gaona discontinued as order. kept comfortable.will monitor patient.
[2017-08-24] MEDS ORDERED: GLUCERNA 1.2 1000ML LIQUID GT SCH (07:00)
[2017-08-24] MEDS: IPRATROPIUM BROMIDE 0.5 MG/2.5 ML NEBU NEB SCH ×3 (07:40→20:28)
[2017-08-24] MEDS: ALBUTEROL SULFATE 2.5 MG/ 0.5 ML NEBU NEB SCH ×3 (07:41→20:28)
[2017-08-24 07:44] LABS: BASOPHILS # (AUTO) 0.1 K/uL (0.0-8.0); BASOPHILS % (AUTO) 0.8 % (0.0-2.0); EOSINOPHILS # (AUTO) 0.3 K/uL (0.0-0.7); EOSINOPHILS % (AUTO) 2.8 % (0.0-7.0); HEMATOCRIT 33.2 % (31.2-41.9); HEMOGLOBIN 11.1 g/dL (10.9-14.3); LYMPHOCYTES # (AUTO) 2.5 K/uL (20.0-40.0); LYMPHOCYTES % (AUTO) 23.8 % (20.5-51.5); MEAN CORPUSCULAR HEMOGLOBIN 29.9 uug (24.7-32.8); MEAN CORPUSCULAR HGB CONC 33 g/dL (32.3-35.6); MEAN CORPUSCULAR VOLUME 89.8 fL (75.5-95.3); MONOCYTES # (AUTO) 0.8 K/uL (2.0-10.0); MONOCYTES % (AUTO) 7.5 % (0.0-11.0); NEUTROPHILS # (AUTO) 6.9 K/uL (1.8-8.9); NEUTROPHILS % (AUTO) 65.1 % (38.5-71.5); PLATELET COUNT (AUTO) 331 K/uL (179-408); WHITE BLOOD COUNT (AUTO) 10.6 K/uL (3.8-11.8)
[2017-08-24 07:46] LABS: CARBON DIOXIDE 38 mmol/L (21-32); CHLORIDE 101 mmol/L (98-107); CREATININE 1.9 mg/dL (0.6-1.3); GLUCOSE 144 mg/dL (74-106); POTASSIUM 3.4 mmol/L (3.5-5.1); UREA NITROGEN, BLOOD 52 mg/dL (7-18)
[2017-08-24 08:15] VITALS: BP 132/53
[2017-08-24] MEDS: predniSONE 20 MG TABLET GT SCH (08:34)
[2017-08-24] MEDS: PANTOPRAZOLE ORAL SUSPENSION 40 MG SUSPDR.PKT GT SCH (08:34)
[2017-08-24] MEDS: FUROSEMIDE 40 MG TABLET GT SCH (08:35)
[2017-08-24] MEDS: ACIDOPHILUS/BULGARICUS CHEW TAB GT SCH ×2 (08:35→21:06)
[2017-08-24] MEDS: AMLODIPINE 10 MG TABLET GT SCH (08:35)
[2017-08-24] MEDS: LINAGLIPTIN 5 MG TABLET GT SCH (08:36)
[2017-08-24] MEDS: METOPROLOL TARTRATE 50 MG TABLET GT SCH ×2 (08:36→21:12)
[2017-08-24] MEDS: MULTIVITAMINS,THERAPEUTIC TABLET GT SCH (08:36)
[2017-08-24] MEDS: GLYCOPYRROLATE 1 MG TABLET GT SCH ×3 (08:36→16:28)
[2017-08-24] MEDS: PYRIDOSTIGMINE BROMIDE 60 MG TABLET GT SCH ×3 (08:37→16:29)
--- NOTE | 2017-08-24 10:43 | NUR ---
Received patient sleeping, alert and verbally responsive. discontinue gaona catheter. Monitoring for urine output. not in distress. will continue monitor
[2017-08-24] MEDS ORDERED: POTASSIUM CHLORIDE 20 MEQ POWDER PACKET GT ONE (12:30)
[2017-08-24] MEDS ORDERED: POTASSIUM CHLORIDE 20 MEQ TAB.PRT.SR PO ONE ×2 (14:30→15:30)
[2017-08-24 16:15] VITALS: BP 113/69
--- NOTE | 2017-08-24 18:43 | NUR ---
Patient had 3x LBM this shift. MD Lucero notified, ordered d/c ABT Zosyn and collect stool for cdiff. not in distress. had 3x diaper change for urine. bladder scan- 490ml. will continue monitor
--- NOTE | 2017-08-24 20:00 | NUR ---
RECEIVED PATIENT AWAKE IN BED. PATIENT IS A/O X3-4, BUT FORGETFUL AT TIMES AND NEEDS REINFORCEMENT. REINSERTED MENDOZA ORDERED AND RECEIVED 750cc OF CLEAR, YELLOW URINE NOTED TO DRAINING BAG. PATIENT DENIES PAIN OR DISCOMFORT. NO RESP. DISTRESS NOTED. DENIES SOB. ON O2 2L NC. CONGESTION NOTED. PATIENT SUCTIONED. G-TUBE FEEING INFUSING WELL AT 50cc/hr. TOLERATING WELL. HEPLOCK NOTED TO LEFT HAND, INTACT AND PATENT. HOB ELEVATED 30 DEGREES FOR ASPIRATION PRECAUTIONS. BED ALARM ON. CALL LIGHT IN REACH. ALL NEEDS ATTENDED. WILL CONTINUE TO MONITOR AND ASSESS.
[2017-08-24] MEDS: GLUCERNA 1.2 1000ML LIQUID GT SCH (21:07)
[2017-08-24] MEDS: ATORVASTATIN 20 MG TABLET GT SCH (21:12)
[2017-08-24] MEDS: ACETAMINOPHEN 325 MG TABLET PO PRN (21:12)
[2017-08-24 21:20] VITALS: BP 125/54
[2017-08-24] MEDS: DIAZEPAM 2 MG TABLET GT PRN (23:23)
[2017-08-24] MEDS: GUAIFENESIN SUGAR FREE 100 MG/5 ML UDC GT PRN (23:24)
--- NOTE | 2017-08-24 23:30 | NUR ---
PATIENT AWAKE IN BED. ASKING FOR VALIUM FOR SLEEP AND ROBITUSSIN FOR COUGH. PATIENT GIVEN MEDS VIA G-TUBE ORDERED PRN AND REPOSITIONED TO COMFORT. VS WNL. CALL LIGHT IN REACH. ALL NEEDS ATTENDED. WILL CONTINUE TO MONITOR AND ASSESS.
--- NOTE | 2017-08-25 01:00 | NUR ---
PATIENT ASLEEP IN BED. NO S/S OF SOB, RESP. DISTRESS OR PAIN. BED ALARM ON. CALL LIGHT IN REACH. ALL NEEDS ATTENDED. WILL CONTINUE TO MONITOR AND ASSESS.
[2017-08-25] MEDS: ALBUTEROL SULFATE 2.5 MG/ 0.5 ML NEBU NEB SCH ×5 (01:30→19:30)
[2017-08-25] MEDS: IPRATROPIUM BROMIDE 0.5 MG/2.5 ML NEBU NEB SCH ×5 (01:30→19:30)
[2017-08-25 05:00] VITALS: BP 146/52
--- NOTE | 2017-08-25 06:00 | NUR ---
PATIENT C/O PAIN IN RIGHT FOOT. GIVEN TYLENOL 650MG PER GT PRN. SLEPT AT INTERVALS THROUGHOUT THE NIGHT. G-TUBE FEEDING INFUSING WELL. NO RESP. DISTRESS NOTED. F/C INTACT AND DRAINING WELL. CALL LIGHT IN REACH. ALL NEEDS ATTENDED. WILL CONTINUE TO MONITOR AND ASSESS.
[2017-08-25] MEDS: INSULIN REGULAR, HUMAN 300 UNIT/3 ML VIAL SQ PRN ×3 (06:02→17:06)
[2017-08-25] MEDS: BLOOD SUGAR DIAGNOSTIC 1 EACH STRIP VI SCH ×3 (06:02→17:04)
[2017-08-25] MEDS: ACETAMINOPHEN 325 MG TABLET PO PRN ×2 (06:03→21:48)
--- NOTE | 2017-08-25 07:56 | NUR ---
Patient noted resting in bed with eyes closed, no facial cues of pain noted, no signs of distress noted, call light in reach, bed locked and in lowest position, PEG tube connected and infusion at 50 ml/hr, x3 bed rails, all needs met at this time
[2017-08-25] MEDS: MULTIVITAMINS,THERAPEUTIC TABLET GT SCH (08:56)
[2017-08-25] MEDS: PANTOPRAZOLE ORAL SUSPENSION 40 MG SUSPDR.PKT GT SCH (08:56)
[2017-08-25] MEDS: predniSONE 20 MG TABLET GT SCH (08:56)
[2017-08-25] MEDS: ACIDOPHILUS/BULGARICUS CHEW TAB GT SCH ×2 (08:56→21:46)
[2017-08-25] MEDS: FUROSEMIDE 40 MG TABLET GT SCH (08:56)
[2017-08-25] MEDS: METOPROLOL TARTRATE 50 MG TABLET GT SCH ×2 (08:57→21:48)
[2017-08-25] MEDS: AMLODIPINE 10 MG TABLET GT SCH (08:57)
[2017-08-25] MEDS: PYRIDOSTIGMINE BROMIDE 60 MG TABLET GT SCH ×3 (08:58→16:56)
[2017-08-25] MEDS: GLYCOPYRROLATE 1 MG TABLET GT SCH ×3 (08:58→16:56)
[2017-08-25] MEDS: LINAGLIPTIN 5 MG TABLET GT SCH (08:58)
[2017-08-25] MEDS: HYDROCODONE/APAP 5-325MG TABLET PO PRN (12:31)
--- NOTE | 2017-08-25 14:27 | NUR ---
WOUND CARE CONSULT: PT PRESENTS WITH PERIANAL RASH AND HEMORRHOIDS. RECOMMENDATIONS MADE FOR RASH AND DISCUSSED WITH NURSING STAFF. PT HAS MENDOZA AND PEG. ALL SKIN PROTECTION MEASURES IN PLACE. WILL SEE PRN. IN AGREEMENT WITH PLAN OF CARE.
[2017-08-25 15:56] VITALS: BP 116/46
[2017-08-25] MEDS: CLOTRIMAZOLE 1% CREAM 30 GM TUBE TOP SCH (16:56)
[2017-08-25 20:37] VITALS: BP 139/36
[2017-08-25] MEDS: ATORVASTATIN 20 MG TABLET GT SCH (21:47)
[2017-08-25] MEDS: GLUCERNA 1.2 1000ML LIQUID GT SCH (21:59)
[2017-08-26] MEDS: BLOOD SUGAR DIAGNOSTIC 1 EACH STRIP VI SCH ×5 (00:11→23:23)
[2017-08-26] MEDS: INSULIN REGULAR, HUMAN 300 UNIT/3 ML VIAL SQ PRN ×3 (00:14→14:58)
[2017-08-26] MEDS: DIAZEPAM 2 MG TABLET GT PRN ×2 (00:21→23:20)
[2017-08-26] MEDS: ALBUTEROL SULFATE 2.5 MG/ 0.5 ML NEBU NEB SCH ×4 (00:38→19:21)
[2017-08-26] MEDS: IPRATROPIUM BROMIDE 0.5 MG/2.5 ML NEBU NEB SCH ×4 (00:38→19:21)
--- NOTE | 2017-08-26 03:55 | NUR ---
Report received from day shift nurse . Pt had her G tube tubing replaced and changed her Glycerna feeding . Pt has no shortness of breath , c/o some pain in right ankle / foot , pain a 2 / 10 . Pt given Tylenol and it was effective. Pt given meds at 2100 , crushed and given via G Tube . Also flushed G tube with 300 mL of water . Pt had a blood sugar of 171 at 0000 , and was given 3 units of insulin . Pt had Valium at 2300 to help with sleep . Pt slept off and on throughout the night.
[2017-08-26 05:50] VITALS: BP 158/56
[2017-08-26 08:00] VITALS: BP 141/62
[2017-08-26] MEDS: ACIDOPHILUS/BULGARICUS CHEW TAB GT SCH ×2 (09:39→21:37)
[2017-08-26] MEDS: AMLODIPINE 10 MG TABLET GT SCH (09:41)
[2017-08-26] MEDS: METOPROLOL TARTRATE 50 MG TABLET GT SCH ×2 (09:42→21:37)
[2017-08-26] MEDS: MULTIVITAMINS,THERAPEUTIC TABLET GT SCH (09:42)
[2017-08-26] MEDS: FUROSEMIDE 40 MG TABLET GT SCH (09:42)
[2017-08-26] MEDS: PYRIDOSTIGMINE BROMIDE 60 MG TABLET GT SCH ×3 (09:44→17:23)
[2017-08-26] MEDS: PANTOPRAZOLE ORAL SUSPENSION 40 MG SUSPDR.PKT GT SCH (09:45)
[2017-08-26] MEDS: predniSONE 20 MG TABLET GT SCH (09:46)
[2017-08-26] MEDS: GLYCOPYRROLATE 1 MG TABLET GT SCH ×3 (09:47→17:23)
[2017-08-26] MEDS: LINAGLIPTIN 5 MG TABLET GT SCH (09:48)
[2017-08-26] MEDS: CLOTRIMAZOLE 1% CREAM 30 GM TUBE TOP SCH ×2 (09:49→17:22)
[2017-08-26 12:21] LABS: CARBON DIOXIDE 36 mmol/L (21-32); CHLORIDE 103 mmol/L (98-107); CREATININE 1.4 mg/dL (0.6-1.3); GLUCOSE 212 mg/dL (74-106); POTASSIUM 4.1 mmol/L (3.5-5.1); UREA NITROGEN, BLOOD 45 mg/dL (7-18)
[2017-08-26] MEDS: HYDROCODONE/APAP 5-325MG TABLET PO PRN (13:06)
[2017-08-26 16:26] VITALS: BP 125/50
[2017-08-26 20:00] VITALS: BP 141/66
[2017-08-26] MEDS: ATORVASTATIN 20 MG TABLET GT SCH (21:37)
[2017-08-26] MEDS: INSULIN GLARGINE,HUM 300 UNITS/3 ML CARTRIDGE SQ SCH (21:50)
[2017-08-26] MEDS: GLUCERNA 1.2 1000ML LIQUID GT SCH (22:56)
[2017-08-26] MEDS: GUAIFENESIN SUGAR FREE 100 MG/5 ML UDC GT PRN (23:41)
--- NOTE | 2017-08-27 00:05 | NUR ---
patient Accucheck was done, BS was 170, patient refused to get insulin coverage. risk and benefits explained. continue to monitor.
[2017-08-27] MEDS: ALBUTEROL SULFATE 2.5 MG/ 0.5 ML NEBU NEB SCH ×4 (00:46→20:20)
[2017-08-27] MEDS: IPRATROPIUM BROMIDE 0.5 MG/2.5 ML NEBU NEB SCH ×4 (00:46→20:20)
[2017-08-27] MEDS: BLOOD SUGAR DIAGNOSTIC 1 EACH STRIP VI SCH ×4 (06:34→23:12)
[2017-08-27 08:00] VITALS: BP 143/61
[2017-08-27] MEDS: FUROSEMIDE 40 MG TABLET GT SCH (08:19)
[2017-08-27] MEDS: MULTIVITAMINS,THERAPEUTIC TABLET GT SCH (08:19)
[2017-08-27] MEDS: PANTOPRAZOLE ORAL SUSPENSION 40 MG SUSPDR.PKT GT SCH (08:19)
[2017-08-27] MEDS: ACIDOPHILUS/BULGARICUS CHEW TAB GT SCH ×2 (08:19→21:44)
[2017-08-27] MEDS: GUAIFENESIN SUGAR FREE 100 MG/5 ML UDC GT PRN (08:19)
[2017-08-27] MEDS: METOPROLOL TARTRATE 50 MG TABLET GT SCH ×2 (08:20→21:46)
[2017-08-27] MEDS: AMLODIPINE 10 MG TABLET GT SCH (08:21)
[2017-08-27] MEDS: predniSONE 20 MG TABLET GT SCH (08:21)
[2017-08-27] MEDS: LINAGLIPTIN 5 MG TABLET GT SCH (08:22)
[2017-08-27] MEDS: PYRIDOSTIGMINE BROMIDE 60 MG TABLET GT SCH ×3 (08:22→17:02)
[2017-08-27] MEDS: GLYCOPYRROLATE 1 MG TABLET GT SCH ×3 (08:23→17:02)
[2017-08-27] MEDS: INSULIN REGULAR, HUMAN 300 UNIT/3 ML VIAL SQ PRN ×4 (08:35→23:19)
[2017-08-27] MEDS: CLOTRIMAZOLE 1% CREAM 30 GM TUBE TOP SCH ×2 (08:37→17:03)
--- NOTE | 2017-08-27 09:00 | NUR ---
Patient noted resting in bed watching tv, denies pain at this time, no signs of distress noted, tolerated all AM medications well, PRN Robitussin administered due to patient request, call light in reach, bed locked and in lowest position, all needs met at this time
[2017-08-27] MEDS: HYDROCODONE/APAP 5-325MG TABLET PO PRN ×2 (12:21→21:47)
--- NOTE | 2017-08-27 13:33 | NUR ---
INTERDISCIPLINARY TEAM CONFERENCE
[2017-08-27 16:41] VITALS: BP 110/63
[2017-08-27 19:30] VITALS: BP 144/56
[2017-08-27] MEDS: ATORVASTATIN 20 MG TABLET GT SCH (21:45)
[2017-08-27] MEDS: INSULIN GLARGINE,HUM 300 UNITS/3 ML CARTRIDGE SQ SCH (22:07)
[2017-08-28] MEDS: GUAIFENESIN SUGAR FREE 100 MG/5 ML UDC GT PRN ×4 (00:10→20:38)
[2017-08-28] MEDS: DIAZEPAM 2 MG TABLET GT PRN (00:10)
[2017-08-28] MEDS: IPRATROPIUM BROMIDE 0.5 MG/2.5 ML NEBU NEB SCH ×4 (01:18→19:30)
[2017-08-28] MEDS: ALBUTEROL SULFATE 2.5 MG/ 0.5 ML NEBU NEB SCH ×4 (01:18→19:30)
[2017-08-28] MEDS: BLOOD SUGAR DIAGNOSTIC 1 EACH STRIP VI SCH ×4 (05:21→23:16)
--- NOTE | 2017-08-28 05:31 | NUR ---
Pt did not sleep well during shift , pt was coughing off and on during the night , pt had a BM during shift , changed pt . bed in low position , wheels locked , 3 side rails up . Pt on 2 L of oxygen continuously . Pt had sleep medication during the shift , did not work very well. Pt saying she had a bad taste in mouth and could not get rid of it , and had nausea . Pt given ice chips and lemon flavored swabs . VSS , no change in LOC.
[2017-08-28 05:37] VITALS: BP 146/50
[2017-08-28 06:46] LABS: BASOPHILS # (AUTO) 0.1 K/uL (0.0-8.0); BASOPHILS % (AUTO) 0.9 % (0.0-2.0); EOSINOPHILS # (AUTO) 0.2 K/uL (0.0-0.7); EOSINOPHILS % (AUTO) 1.7 % (0.0-7.0); HEMATOCRIT 33.9 % (31.2-41.9); HEMOGLOBIN 11.1 g/dL (10.9-14.3); LYMPHOCYTES % (AUTO) 25.8 % (20.5-51.5); MEAN CORPUSCULAR HEMOGLOBIN 29.6 uug (24.7-32.8); MEAN CORPUSCULAR HGB CONC 33 g/dL (32.3-35.6); MEAN CORPUSCULAR VOLUME 90.1 fL (75.5-95.3); MONOCYTES % (AUTO) 8.8 % (0.0-11.0); NEUTROPHILS # (AUTO) 7.4 K/uL (1.8-8.9); NEUTROPHILS % (AUTO) 62.8 % (38.5-71.5); PLATELET COUNT (AUTO) 288 K/uL (179-408); RED BLOOD CELL COUNT(AUTO) 3.76 MIL/uL (3.63-4.92); WHITE BLOOD COUNT (AUTO) 11.7 K/uL (3.8-11.8)
[2017-08-28 06:50] LABS: CARBON DIOXIDE 35 mmol/L (21-32); CHLORIDE 100 mmol/L (98-107); CREATININE 1.5 mg/dL (0.6-1.3); GLUCOSE 140 mg/dL (74-106); POTASSIUM 3.7 mmol/L (3.5-5.1); UREA NITROGEN, BLOOD 48 mg/dL (7-18)
[2017-08-28 08:00] VITALS: BP 154/58
[2017-08-28] MEDS: PYRIDOSTIGMINE BROMIDE 60 MG TABLET GT SCH ×3 (09:43→17:47)
[2017-08-28] MEDS: ACIDOPHILUS/BULGARICUS CHEW TAB GT SCH ×2 (09:44→20:33)
[2017-08-28] MEDS: FUROSEMIDE 40 MG TABLET GT SCH (09:44)
[2017-08-28] MEDS: GLYCOPYRROLATE 1 MG TABLET GT SCH ×3 (09:44→17:46)
[2017-08-28] MEDS: MULTIVITAMINS,THERAPEUTIC TABLET GT SCH (09:44)
[2017-08-28] MEDS: PANTOPRAZOLE ORAL SUSPENSION 40 MG SUSPDR.PKT GT SCH (09:44)
[2017-08-28] MEDS: LINAGLIPTIN 5 MG TABLET GT SCH (09:45)
[2017-08-28] MEDS: AMLODIPINE 10 MG TABLET GT SCH (09:45)
[2017-08-28] MEDS: predniSONE 20 MG TABLET GT SCH (09:45)
[2017-08-28] MEDS: CLOTRIMAZOLE 1% CREAM 30 GM TUBE TOP SCH ×2 (09:46→17:49)
[2017-08-28] MEDS: METOPROLOL TARTRATE 50 MG TABLET GT SCH ×2 (09:46→20:37)
--- NOTE | 2017-08-28 10:47 | NUR ---
Patient noted resting in bed, warming blankets applied for complaints of being cold, oral suction provided due to built up secretions, Robitussin provided for coughing, no complaints of pain at this time, call light in reach, bed locked and in lowest position, bed placed in high clark's, patient noted lowering head of bed, educated on importance of keeping head of bed above 30 degrees, will continue to reenforce topic
[2017-08-28] MEDS: INSULIN REGULAR, HUMAN 300 UNIT/3 ML VIAL SQ PRN ×3 (12:33→23:21)
[2017-08-28 19:35] VITALS: BP 103/49
--- NOTE | 2017-08-28 20:04 | NUR ---
resting in bed. alert and oriented x4 on continous O2 @ 2L via nasal cannula. pulse ox 95%. On continous Glucerna feeding at 50cc/hr then flush with H2O q 6hrs. Tolerated feeding well. needs attended. coughing most of the shift. robitussin given will monitor patient. Suctioned self with moderate amount of whitish secretions noted. kept comfortable. no acute distress noted. fall precautions maintained. siderails up for safety.
[2017-08-28] MEDS: ATORVASTATIN 20 MG TABLET GT SCH (20:33)
[2017-08-28] MEDS: ACETAMINOPHEN 325 MG TABLET PO PRN (20:33)
[2017-08-28] MEDS: HYDROCODONE/APAP 5-325MG TABLET PO PRN (20:34)
[2017-08-28] MEDS: INSULIN GLARGINE,HUM 300 UNITS/3 ML CARTRIDGE SQ SCH (20:51)
[2017-08-28] MEDS: MELATONIN 3 MG TABLET PO SCH (23:12)
[2017-08-29] MEDS: IPRATROPIUM BROMIDE 0.5 MG/2.5 ML NEBU NEB SCH ×4 (01:30→20:19)
[2017-08-29] MEDS: ALBUTEROL SULFATE 2.5 MG/ 0.5 ML NEBU NEB SCH ×4 (01:30→20:19)
[2017-08-29] MEDS: BLOOD SUGAR DIAGNOSTIC 1 EACH STRIP VI SCH ×4 (06:07→23:28)
[2017-08-29] MEDS: INSULIN REGULAR, HUMAN 300 UNIT/3 ML VIAL SQ PRN ×2 (06:10→18:53)
[2017-08-29 06:43] VITALS: BP 110/74
[2017-08-29] MEDS: AMLODIPINE 10 MG TABLET GT SCH (09:00)
[2017-08-29] MEDS: CLOTRIMAZOLE 1% CREAM 30 GM TUBE TOP SCH ×2 (09:00→18:54)
[2017-08-29] MEDS: METOPROLOL TARTRATE 50 MG TABLET GT SCH ×2 (09:00→20:40)
[2017-08-29] MEDS: FUROSEMIDE 40 MG TABLET GT SCH (09:00)
[2017-08-29] MEDS: MULTIVITAMINS,THERAPEUTIC TABLET GT SCH (10:14)
[2017-08-29] MEDS: predniSONE 20 MG TABLET GT SCH (10:15)
[2017-08-29] MEDS: ACIDOPHILUS/BULGARICUS CHEW TAB GT SCH ×2 (10:15→20:37)
[2017-08-29] MEDS: PANTOPRAZOLE ORAL SUSPENSION 40 MG SUSPDR.PKT GT SCH (10:16)
[2017-08-29] MEDS: GLYCOPYRROLATE 1 MG TABLET GT SCH ×3 (10:16→18:59)
[2017-08-29] MEDS: PYRIDOSTIGMINE BROMIDE 60 MG TABLET GT SCH ×3 (10:18→18:59)
[2017-08-29] MEDS: LINAGLIPTIN 5 MG TABLET GT SCH (10:19)
[2017-08-29] MEDS: HYDROCODONE/APAP 5-325MG TABLET PO PRN (12:14)
[2017-08-29 16:03] VITALS: BP 133/57
--- NOTE | 2017-08-29 19:45 | NUR ---
Received pt in bed, appearing to be asleep. No acute distress noted. Easily arousable to verbal stimuli and light touch. Denies pain or discomfort at this time. All safety measures and fall precautions maintained. Call light and all personal belongings within reach. Will continue to monitor.
[2017-08-29 20:00] VITALS: BP 145/63
[2017-08-29] MEDS: MIRTAZAPINE 15 MG TABLET PO SCH (20:36)
[2017-08-29] MEDS: ATORVASTATIN 20 MG TABLET GT SCH (20:38)
[2017-08-29] MEDS: INSULIN GLARGINE,HUM 300 UNITS/3 ML CARTRIDGE SQ SCH (20:52)
[2017-08-29] MEDS: GUAIFENESIN SUGAR FREE 100 MG/5 ML UDC GT PRN (23:28)
[2017-08-29] MEDS: DIAZEPAM 2 MG TABLET GT PRN (23:28)
[2017-08-30] MEDS: IPRATROPIUM BROMIDE 0.5 MG/2.5 ML NEBU NEB SCH ×4 (01:05→19:30)
[2017-08-30] MEDS: ALBUTEROL SULFATE 2.5 MG/ 0.5 ML NEBU NEB SCH ×4 (01:05→19:30)
[2017-08-30] MEDS: BLOOD SUGAR DIAGNOSTIC 1 EACH STRIP VI SCH ×4 (05:30→23:56)
[2017-08-30] MEDS: INSULIN REGULAR, HUMAN 300 UNIT/3 ML VIAL SQ PRN ×3 (05:32→17:43)
[2017-08-30 08:00] VITALS: BP 103/32
--- NOTE | 2017-08-30 08:24 | NUR ---
SBAR report received, board updated. Pt received resting in bed. All comfort and safety measures implemented at this time. VS WNL. Call light within reach. Bed in locked and lowest position with side rails up x2. Will continue to monitor.
[2017-08-30] MEDS: METOPROLOL TARTRATE 50 MG TABLET GT SCH ×2 (09:00→21:32)
[2017-08-30] MEDS: AMLODIPINE 10 MG TABLET GT SCH (09:00)
[2017-08-30] MEDS: ACIDOPHILUS/BULGARICUS CHEW TAB GT SCH ×2 (09:22→21:31)
[2017-08-30] MEDS: MULTIVITAMINS,THERAPEUTIC TABLET GT SCH (09:22)
[2017-08-30] MEDS: FUROSEMIDE 40 MG TABLET GT SCH (09:22)
[2017-08-30] MEDS: predniSONE 20 MG TABLET GT SCH (09:23)
[2017-08-30] MEDS: GLYCOPYRROLATE 1 MG TABLET GT SCH ×3 (09:24→17:27)
[2017-08-30] MEDS: LINAGLIPTIN 5 MG TABLET GT SCH (09:24)
[2017-08-30] MEDS: PYRIDOSTIGMINE BROMIDE 60 MG TABLET GT SCH ×3 (09:25→17:27)
[2017-08-30] MEDS: PANTOPRAZOLE ORAL SUSPENSION 40 MG SUSPDR.PKT GT SCH (09:31)
[2017-08-30] MEDS: CLOTRIMAZOLE 1% CREAM 30 GM TUBE TOP SCH ×2 (09:31→17:30)
[2017-08-30] MEDS: HYDROCODONE/APAP 5-325MG TABLET PO PRN (09:52)
[2017-08-30] MEDS: GUAIFENESIN SUGAR FREE 100 MG/5 ML UDC GT PRN ×2 (10:37→23:51)
[2017-08-30 15:38] VITALS: BP 109/39
--- NOTE | 2017-08-30 15:44 | NUR ---
Correctional Officer Chief: SW met with patient at bedside to assess her needs and provide support. Patient is a 82 year-old female admitted to the Acute Rehab Unit for functional impairment for intensive rehabilitation and functional yarsani towards functional independence. Patient presents status-post PEG placement on 08/09/17, and has past medical history of Myasthenia Gravis, CVA, Hypertension, and muscle weakness. Patient expressed concern, as she has been unable "to eat even ice cubes" because she has been having difficulties swallowing. Mental Status: Patient was alert and oriented x4 during the interview. Patient presented with a depressed mood with congruent affect. Patient expressed shame and embarrassment due to her health. She stated, "I hate for my family to see me like this...I ask them not to come visit me." Patient stated that she was "upset" because she cannot eat or drink anymore. Pt stated, "The thought of never being able to eat or drink again makes me so sad." Patient reported that she enjoys wearing make-up and "making myself look presentable" to make herself feel better. Patient has been in the hospital since August,. Patient was pleasant and cooperative during the interview. Patient appears to be coping well with PT and OT, patient stated, "My ST is looking for a doctor that may be able to help me with my swallowing." Support System: Patient is currently , and reports her comes to visit her every day. Patient said they have been for 63 years. Patient expressed pride when speaking about her family. She acknowledged a picture of her first great-grandchild hanging on the wall next to her bed. Patient reported that her entire family and extended family are coming to [place] in September. Patient expressed that she is looking forward to it, and "worried about what they will think of me" at the same time. Goals: Patient said her goal is to be able to swallow so that she can eat again. She also said that she would like to live in a "nice home" that her finds for her in their neighborhood. Interventions: TE engaged in active listening. SW provided emotional support and counseling in regards to the feelings of loss surrounding her health conditions. SW explored coping strategies for the patient when she has feelings of shame. TE collaborated with CANDI Restrepo and Rec Ras Cristobal. SW will provide linkage to case management and will continue to be available to the patient and her family to provide further support. SW will continue to encourage the patient to comply with ARU treatment goals.
--- NOTE | 2017-08-30 18:40 | NUR ---
Pt has remained stable throughout this shift. All needs promptly attended to, comfort and safety measures implemented. Bed in locked and lowest position with side rails up x2. No acute distress. Howell care provided and emptied. GT checked for placement throughout shift. Pt clean and dry. Pt compliant with all medication administration and care provided. Call light within reach. Will continue to monitor and endorse to on coming material handler 1st shift.
[2017-08-30] MEDS: GLUCERNA 1.2 1000ML LIQUID GT SCH (19:57)
[2017-08-30 21:13] VITALS: BP 124/50
[2017-08-30] MEDS: ATORVASTATIN 20 MG TABLET GT SCH (21:31)
[2017-08-30] MEDS: MIRTAZAPINE 15 MG TABLET PO SCH (21:32)
[2017-08-30] MEDS: INSULIN GLARGINE,HUM 300 UNITS/3 ML CARTRIDGE SQ SCH (21:42)
[2017-08-30] MEDS: DIAZEPAM 2 MG TABLET GT PRN (23:51)
[2017-08-31] MEDS: ALBUTEROL SULFATE 2.5 MG/ 0.5 ML NEBU NEB SCH ×4 (01:30→19:03)
[2017-08-31] MEDS: IPRATROPIUM BROMIDE 0.5 MG/2.5 ML NEBU NEB SCH ×4 (01:30→19:03)
--- NOTE | 2017-08-31 03:56 | NUR ---
Patient received at bed, AAO X4. No acute distress or SOB was noted. Her G tube tubing was replaced and her Glucerna 1.2 feeding was changed. . Meds given as ordered, crushed and through G Tube . Also flushed G tube with 300 mL of water. Howell catheter in placed, well draining clear dov urine. Patient had a blood sugar of 107 at 0000, no coverage. Valium and Robitussin given at 2300 to help with sleep and cough. All needs attended and participated. safety measures maintained. Bed at low position, alarm and brake on. Patient had a good sleep throughout the night. Continue to monitor and will endorse to day shift nurse accordingly.
[2017-08-31] MEDS: BLOOD SUGAR DIAGNOSTIC 1 EACH STRIP VI SCH ×4 (06:55→23:26)
[2017-08-31] MEDS: METOPROLOL TARTRATE 50 MG TABLET GT SCH ×2 (09:00→21:19)
[2017-08-31] MEDS: CLOTRIMAZOLE 1% CREAM 30 GM TUBE TOP SCH ×2 (09:00→17:56)
[2017-08-31] MEDS: AMLODIPINE 10 MG TABLET GT SCH (09:00)
[2017-08-31] MEDS: ACIDOPHILUS/BULGARICUS CHEW TAB GT SCH ×2 (10:39→21:19)
[2017-08-31] MEDS: MULTIVITAMINS,THERAPEUTIC TABLET GT SCH (10:39)
[2017-08-31] MEDS: FUROSEMIDE 40 MG TABLET GT SCH (10:39)
[2017-08-31] MEDS: PANTOPRAZOLE ORAL SUSPENSION 40 MG SUSPDR.PKT GT SCH (10:39)
[2017-08-31] MEDS: predniSONE 20 MG TABLET GT SCH (10:39)
[2017-08-31] MEDS: GLYCOPYRROLATE 1 MG TABLET GT SCH ×3 (10:40→17:35)
[2017-08-31] MEDS: PYRIDOSTIGMINE BROMIDE 60 MG TABLET GT SCH ×3 (10:40→17:35)
[2017-08-31] MEDS: LINAGLIPTIN 5 MG TABLET GT SCH (10:40)
[2017-08-31] MEDS: HYDROCODONE/APAP 5-325MG TABLET PO PRN (10:52)
[2017-08-31] MEDS: GUAIFENESIN SUGAR FREE 100 MG/5 ML UDC GT PRN ×2 (12:12→23:27)
[2017-08-31] MEDS: INSULIN REGULAR, HUMAN 300 UNIT/3 ML VIAL SQ PRN ×2 (12:40→18:24)
[2017-08-31] MEDS ORDERED: IV NORMAL SALINE 500 ML IV ONE (16:30)
[2017-08-31 16:32] VITALS: BP 110/43
[2017-08-31] MEDS ORDERED: INSULIN NPH 1,000 UNITS/10 ML VIAL SQ SCH (17:00)
[2017-08-31] MEDS ORDERED: IV NS 1000 ML 1,000 ML IV PRN (17:30)
[2017-08-31] MEDS: NEOMY/POLYMYX B/HC OTIC SUSP 10 ML BOTTLE RIGHT EAR SCH ×2 (17:35→21:19)
--- NOTE | 2017-08-31 18:48 | NUR ---
SBAR report received this morning, board updated. Pt assessed no acute distress or SOB. Productive cough remains present. PRN cough medication administered as ordered. Pt seen by MD and LEAD SEWAGE PLANT OPERATOR. New orders received. Pt compliant with routinely scheduled medication administration. Pt able to ambulate minimally with PT. IV removed and intact. New IV placed in right forearm #22, flushed and patent. IV bolus of NS administered as ordered. Bed in locked and lowest position with side rails up x2. Call light and personal items placed within reach. All safety and comfort needs met. Will continue to monitor and endorse to oncoming qa automation engineer.
[2017-08-31 20:00] VITALS: BP 149/56
[2017-08-31] MEDS: ATORVASTATIN 20 MG TABLET GT SCH (21:19)
[2017-08-31] MEDS: MIRTAZAPINE 15 MG TABLET PO SCH (21:20)
[2017-08-31] MEDS: INSULIN GLARGINE,HUM 300 UNITS/3 ML CARTRIDGE SQ SCH (21:40)
[2017-08-31] MEDS: PIPERACILLIN/TAZOBACTAM/D5W 2.25 G in PREMIXED 1 EACH IV SCH (21:55)
[2017-08-31] MEDS: DIAZEPAM 2 MG TABLET GT PRN (23:27)
[2017-09-01] MEDS: IPRATROPIUM BROMIDE 0.5 MG/2.5 ML NEBU NEB SCH ×4 (01:02→21:33)
[2017-09-01] MEDS: ALBUTEROL SULFATE 2.5 MG/ 0.5 ML NEBU NEB SCH ×4 (01:04→21:33)
[2017-09-01] MEDS: GLUCERNA 1.2 1000ML LIQUID GT SCH (03:44)
[2017-09-01] MEDS: PIPERACILLIN/TAZOBACTAM/D5W 2.25 G in PREMIXED 1 EACH IV SCH ×3 (05:28→21:48)
[2017-09-01] MEDS: BLOOD SUGAR DIAGNOSTIC 1 EACH STRIP VI SCH ×4 (05:34→23:50)
--- NOTE | 2017-09-01 05:43 | NUR ---
Patient received at bed, AAO X4. No acute distress or SOB was noted. Her G tube tubing was replaced and her Glucerna 1.2 feeding was changed. . Meds given as ordered, crushed and through G Tube . Also flushed G tube with 300 mL of water. IV access on her right wrist, gauge 22, no sign of inflammation or infiltration. Flushed IV line. Zosyn was administered via IV. Howell catheter in placed, well draining clear dov urine. Patient had a blood sugar of 101 at 0000, no coverage. Valium and Robitussin given at 2300 to help with sleep and cough. All needs attended and participated. safety measures maintained. Bed at low position, alarm and brake on. Patient had a good sleep throughout the night. Continue to monitor and will endorse to day shift nurse accordingly.
[2017-09-01 06:41] LABS: BASOPHILS # (AUTO) 0.1 K/uL (0.0-8.0); EOSINOPHILS # (AUTO) 0.1 K/uL (0.0-0.7); HEMATOCRIT 24.9 % (31.2-41.9); HEMOGLOBIN 8.2 g/dL (10.9-14.3); LYMPHOCYTES # (AUTO) 1.7 K/uL (20.0-40.0); LYMPHOCYTES % (AUTO) 17.8 % (20.5-51.5); MEAN CORPUSCULAR HEMOGLOBIN 30.6 uug (24.7-32.8); MEAN CORPUSCULAR HGB CONC 33 g/dL (32.3-35.6); MEAN CORPUSCULAR VOLUME 92.4 fL (75.5-95.3); MONOCYTES # (AUTO) 0.7 K/uL (2.0-10.0); MONOCYTES % (AUTO) 7.3 % (0.0-11.0); NEUTROPHILS # (AUTO) 6.8 K/uL (1.8-8.9); NEUTROPHILS % (AUTO) 72.9 % (38.5-71.5); PLATELET COUNT (AUTO) 213 K/uL (179-408); WHITE BLOOD COUNT (AUTO) 9.3 K/uL (3.8-11.8)
[2017-09-01 06:55] LABS: CARBON DIOXIDE 32 mmol/L (21-32); CHLORIDE 100 mmol/L (98-107); CREATININE 1.3 mg/dL (0.6-1.3); GLUCOSE 198 mg/dL (74-106); POTASSIUM 3.4 mmol/L (3.5-5.1); UREA NITROGEN, BLOOD 33 mg/dL (7-18)
[2017-09-01 08:17] VITALS: BP 162/70
[2017-09-01] MEDS ORDERED: PANTOPRAZOLE SODIUM 40 MG VIAL IV SCH ×2 (09:00)
[2017-09-01] MEDS: PYRIDOSTIGMINE BROMIDE 60 MG TABLET GT SCH ×3 (09:31→16:51)
[2017-09-01] MEDS: MULTIVITAMINS,THERAPEUTIC TABLET GT SCH (09:32)
[2017-09-01] MEDS: GLYCOPYRROLATE 1 MG TABLET GT SCH ×3 (09:32→16:51)
[2017-09-01] MEDS: ACIDOPHILUS/BULGARICUS CHEW TAB GT SCH ×2 (09:32→21:02)
[2017-09-01] MEDS: LINAGLIPTIN 5 MG TABLET GT SCH (09:32)
[2017-09-01] MEDS: predniSONE 20 MG TABLET GT SCH (09:33)
[2017-09-01] MEDS: FUROSEMIDE 40 MG TABLET GT SCH (09:33)
[2017-09-01] MEDS: NEOMY/POLYMYX B/HC OTIC SUSP 10 ML BOTTLE RIGHT EAR SCH ×4 (09:34→21:08)
[2017-09-01] MEDS: INSULIN GLARGINE,HUM 300 UNITS/3 ML CARTRIDGE SQ SCH ×2 (09:37→21:10)
[2017-09-01] MEDS: CLOTRIMAZOLE 1% CREAM 30 GM TUBE TOP SCH ×2 (09:37→16:52)
[2017-09-01] MEDS: METOPROLOL TARTRATE 50 MG TABLET GT SCH ×2 (09:40→21:13)
[2017-09-01] MEDS: AMLODIPINE 10 MG TABLET GT SCH (09:41)
[2017-09-01] MEDS: PANTOPRAZOLE ORAL SUSPENSION 40 MG SUSPDR.PKT GT SCH (11:04)
[2017-09-01] MEDS: HYDROCODONE/APAP 5-325MG TABLET PO PRN (11:05)
[2017-09-01] MEDS: INSULIN REGULAR, HUMAN 300 UNIT/3 ML VIAL SQ PRN ×3 (12:36→23:52)
[2017-09-01] MEDS ORDERED: POTASSIUM CHLORIDE 20 MEQ POWDER PACKET GT ONE (14:00)
[2017-09-01 16:10] VITALS: BP 108/66
[2017-09-01] MEDS ORDERED: NEOM10DR11 EACH EAR (17:06)
--- NOTE | 2017-09-01 17:32 | NUR ---
SBAR report received, board updated. Pt AAOx4, assessed, no acute distress or SOB on NC. Compliant with all routine medication administration and therapies as provided. Pt reports pain managed with PRN medication. GT flushed as ordered, no residual. Howell catheter draining clear yellow urine. Original IV accidentally pulled out during therapy by Pt. New #22 IV started on left forearm AC, flushed and patent for IV antibiotics. Bed in locked and lowest position with side rails up x2. All comfort and safety needs met promptly this shift. Call light and personal items placed within reach. Will continue to monitor and endorse to oncoming maintenance technician 3rd shift.
--- NOTE | 2017-09-01 19:10 | NUR ---
Received patient awake and alert during initial rounds. HOB elevated with continuos O2 at 2L via NC with Humidifier saturating 97 % at this time. Able to suction self orally with white thick secretion. Denies any pain/discomforts at this time. GTF Glucerna at 50 cc/hour tolerated well. No gastric residual noted. FC intact and patent draining clear yellow output. Safety measure and fall precaution maintained. Continue care as planned.
[2017-09-01 19:40] VITALS: BP 116/51
--- NOTE | 2017-09-01 20:25 | NUR ---
Family at bedside.
[2017-09-01] MEDS: ATORVASTATIN 20 MG TABLET GT SCH (21:03)
[2017-09-01] MEDS: MIRTAZAPINE 15 MG TABLET PO SCH (21:03)
--- NOTE | 2017-09-01 22:08 | NUR ---
Kei Lloyd here with verbal order to dc IV fluid, noted and carried out.
[2017-09-01] MEDS: GUAIFENESIN SUGAR FREE 100 MG/5 ML UDC GT PRN (22:35)
[2017-09-01] MEDS: MELATONIN 3 MG TABLET PO SCH (23:47)
[2017-09-02] MEDS: GLUCERNA 1.2 1000ML LIQUID GT SCH (00:17)
--- NOTE | 2017-09-02 00:19 | NUR ---
Had moderate amount of brown soft stool. good fe care rendered. Tolerated procedure well.
[2017-09-02] MEDS: ALBUTEROL SULFATE 2.5 MG/ 0.5 ML NEBU NEB SCH ×3 (01:35→13:09)
[2017-09-02] MEDS: IPRATROPIUM BROMIDE 0.5 MG/2.5 ML NEBU NEB SCH ×3 (01:35→13:09)
[2017-09-02 05:25] VITALS: BP 147/56
[2017-09-02] MEDS: PIPERACILLIN/TAZOBACTAM/D5W 2.25 G in PREMIXED 1 EACH IV SCH ×2 (05:28→13:46)
[2017-09-02] MEDS: BLOOD SUGAR DIAGNOSTIC 1 EACH STRIP VI SCH ×2 (05:33→12:03)
[2017-09-02] MEDS: PANTOPRAZOLE ORAL SUSPENSION 40 MG SUSPDR.PKT GT SCH (05:46)
--- NOTE | 2017-09-02 06:09 | NUR ---
Shift End Report: VS stable. Slept good. No complaint presented all night. No s/s of adverse reaction noted from antibiotic. Tolerating GT feeding, no gastric residual, no s/s of aspiration noted. Safety measures and fall precaution maintained. No fall/injury. No acute respiratory distress noted. All needs attended and anticipated. No significant event reported. Continue current rehab plan of care.
[2017-09-02 08:00] VITALS: BP 171/75
[2017-09-02] MEDS: CLOTRIMAZOLE 1% CREAM 30 GM TUBE TOP SCH (09:00)
[2017-09-02 09:21] VITALS: BP 138/48
[2017-09-02] MEDS: LINAGLIPTIN 5 MG TABLET GT SCH (09:26)
[2017-09-02] MEDS: ACIDOPHILUS/BULGARICUS CHEW TAB GT SCH (09:26)
[2017-09-02] MEDS: AMLODIPINE 10 MG TABLET GT SCH (09:26)
[2017-09-02 09:27] VITALS: BP 138/48
[2017-09-02] MEDS: MULTIVITAMINS,THERAPEUTIC TABLET GT SCH (09:27)
[2017-09-02] MEDS: FUROSEMIDE 40 MG TABLET GT SCH (09:27)
[2017-09-02] MEDS: METOPROLOL TARTRATE 50 MG TABLET GT SCH (09:27)
[2017-09-02] MEDS: GLYCOPYRROLATE 1 MG TABLET GT SCH ×2 (09:27→12:03)
[2017-09-02] MEDS: predniSONE 20 MG TABLET GT SCH (09:27)
[2017-09-02] MEDS: PYRIDOSTIGMINE BROMIDE 60 MG TABLET GT SCH ×2 (09:28→12:03)
[2017-09-02] MEDS: NEOMY/POLYMYX B/HC OTIC SUSP 10 ML BOTTLE RIGHT EAR SCH ×2 (09:29→12:04)
[2017-09-02] MEDS: INSULIN GLARGINE,HUM 300 UNITS/3 ML CARTRIDGE SQ SCH (09:31)
[2017-09-02] MEDS: INSULIN REGULAR, HUMAN 300 UNIT/3 ML VIAL SQ PRN (12:02)
[2017-09-02 13:57] LABS: *OCCULT BLOOD STOOL NEGATIVE (NEGATIVE)
--- NOTE | 2017-09-02 14:19 | NUR ---
pt stable during discharge. [facility]. vitals stable. pt continues to be on 2L. ADMINISTRATOR PESTICIDE aware. given report. [facility]
[2017-09-02] MEDS ORDERED: ACET-2154 PO (17:06)
[2017-09-02] MEDS ORDERED: HYDR-3326 PO (17:06)
[2017-09-02] MEDS ORDERED: INSU100V7 SQ ×2 (17:06)
[2017-09-02] MEDS ORDERED: LACT1TAB12 GT (17:06)
[2017-09-02] MEDS ORDERED: CLOT30CR24 TP (17:06)
[2017-09-02] MEDS ORDERED: MIRT15TA PO (17:06)
[2017-09-02] MEDS ORDERED: MULT-24 GT (17:06)
[2017-09-02] MEDS ORDERED: LINA5TAB GT (17:06)
[2017-09-02] MEDS ORDERED: MELA3TAB GT (17:06)
[2017-09-02] MEDS ORDERED: BISA-79 PR (17:06)
[2017-09-02] MEDS ORDERED: ATOR20TA PO (17:06)
[2017-09-02] MEDS ORDERED: HYDR25TA86 GT (17:06)
[2017-09-02] MEDS ORDERED: ALBU1.25 NEB (17:06)
== END 2017-09-02 15:12 | disposition short-term general hospital (02) | DRG 56 ==
PROVIDERS: ADMIT Physical Medicine & Rehabilitation Pain Medicine; ATTEND Physical Medicine & Rehabilitation Pain Medicine
DX: G70.01 Myasthenia gravis with (acute) exacerbation (principal); E43 Unspecified severe protein-calorie malnutrition; J69.0 Pneumonitis due to inhalation of food and vomit; F33.0 Major depressive disorder, recurrent, mild; N17.9 Acute kidney failure, unspecified; R13.10 Dysphagia, unspecified; E11.65 Type 2 diabetes mellitus with hyperglycemia; E78.5 Hyperlipidemia, unspecified; I10 Essential (primary) hypertension; I25.10 Atherosclerotic heart disease of native coronary artery without angina pectoris; Z93.1 Gastrostomy status; Z68.26 Body mass index [BMI] 26.0-26.9, adult; R47.1 Dysarthria and anarthria; I69.392 Facial weakness following cerebral infarction; E83.41 Hypermagnesemia; E87.6 Hypokalemia; K20.9 Esophagitis, unspecified; K22.2 Esophageal obstruction; H60.91 Unspecified otitis externa, right ear; F41.9 Anxiety disorder, unspecified; G47.00 Insomnia, unspecified; K26.9 Duodenal ulcer, unspecified as acute or chronic, without hemorrhage or perforation; K44.9 Diaphragmatic hernia without obstruction or gangrene; T38.0X5A Adverse effect of glucocorticoids and synthetic analogues, initial encounter; Z87.01 Personal history of pneumonia (recurrent); Z88.1 Allergy status to other antibiotic agents; R53.1 Weakness; S93.601D Unspecified sprain of right foot, subsequent encounter; X50.1XXD Overexertion from prolonged static or awkward postures, subsequent encounter; Z88.8 Allergy status to other drugs, medicaments and biological substances; B96.89 Other specified bacterial agents as the cause of diseases classified elsewhere
CPT/HCPCS: 36415; 51798; 70030-TC; 71045; 73620; 82306; 83550; 83735; 84100; 84443; 84481; 85025; 85610; 87086; 92523; 92526; 92610; 93307; 94640; 94664; 97110; 97112; 97116; 97165; 97530; 97535; A4217; A4663; J1815; J2543; J3480; J3590; J7050; J7512

== ENCOUNTER 2017-09-02 15:24 | Inpatient (IN) | payer BC, MEDICARE ==
[~2017-09-02] VITALS: Ht 157.5 cm; Wt 62.6 kg
[~2017-09-02 15:24] MED LIST: AMLO10TA2 GT; ASPI-612 RC; DIAZ2TAB PO; FURO40TA5 GT; GLYC2TAB2 GT; METO75TA GT; NEOM10DR11 EACH EAR; PIPE3.376 IV; PRED20TA GT; PYRI60TA2 IV; SITA50TA GT; [UNRECOGNIZED DRUG - CODE] GT
[2017-09-02] MEDS ORDERED: ACETAMINOPHEN 325 MG TABLET PO PRN ×2 (15:45→22:45)
[2017-09-02] MEDS ORDERED: MAGNESIUM HYDROXIDE 30 ML LIQUID UDC PO PRN (15:45)
[2017-09-02] MEDS ORDERED: HYDROCODONE/APAP 5-325MG TABLET PO PRN (15:45)
[2017-09-02] MEDS ORDERED: ONDANSETRON 4 MG/2 ML VIAL IV PRN (15:45)
[2017-09-02] MEDS ORDERED: ZOLPIDEM 5 MG TABLET PO PRN (15:45)
--- NOTE | 2017-09-02 16:05 | NUR ---
RECEIVED PATIENT FROM ARU VIA HOSP BED ACCOMPANIED BY NATI CHRISTOPHER. REPORT RECEIVED PRIOR TO TRANSFER. PATIENT IN STABLE CONDITION, ORIENTED TO UNIT. ADMITTED IN ROOM 208. AWARE. WILL CONTINUE TO MONITOR.
[2017-09-02 16:20] VITALS: BP 113/47
[2017-09-02] MEDS ORDERED: INSU100V7 SQ ×2 (17:06)
[2017-09-02] MEDS ORDERED: LACT1TAB12 GT (17:06)
[2017-09-02] MEDS ORDERED: ATOR20TA PO (17:06)
[2017-09-02] MEDS ORDERED: ALBU1.25 NEB (17:06)
[2017-09-02] MEDS ORDERED: HYDR25TA86 GT (17:06)
[2017-09-02] MEDS ORDERED: MULT-24 GT (17:06)
[2017-09-02] MEDS ORDERED: MIRT15TA PO (17:06)
[2017-09-02] MEDS ORDERED: ACET-2154 PO (17:06)
[2017-09-02] MEDS ORDERED: HYDR-3326 PO (17:06)
[2017-09-02] MEDS ORDERED: CLOT30CR24 TP (17:06)
[2017-09-02] MEDS ORDERED: BISA-79 PR (17:06)
[2017-09-02] MEDS ORDERED: MELA3TAB GT (17:06)
[2017-09-02] MEDS ORDERED: LINA5TAB GT (17:06)
[2017-09-02 19:00] VITALS: BP 133/52
[2017-09-02] MEDS ORDERED: GLUCERNA 1.2 1000ML LIQUID GT PRN (21:00)
[2017-09-02] MEDS ORDERED: DIAZEPAM 5 MG TABLET PO PRN (22:15)
[2017-09-02] MEDS ORDERED: GUAIFENESIN/DEXTROMETHORPHAN 5 ML UDC PO PRN (22:15)
[2017-09-02] MEDS ORDERED: DEXTROSE 50% 50 ML DISP.SYRIN IV PRN (22:30)
[2017-09-02] MEDS ORDERED: DIAZEPAM 5 MG TABLET GT PRN ×2 (22:30→23:45)
[2017-09-02] MEDS ORDERED: MELATONIN 3 MG TABLET GT PRN (22:45)
[2017-09-02] MEDS ORDERED: MAGNESIUM HYDROXIDE 30 ML LIQUID UDC GT PRN (22:45)
[2017-09-02] MEDS ORDERED: BISACODYL 5 MG TABLET.DR PO PRN (22:45)
[2017-09-02] MEDS ORDERED: ALBUTEROL SULFATE 1.25 MG/3 ML NEBU NEB PRN (22:45)
[2017-09-03] MEDS: BLOOD SUGAR DIAGNOSTIC 1 EACH STRIP VI SCH ×5 (00:13→23:40)
[2017-09-03] MEDS: GUAIFENESIN/DEXTROMETHORPHAN 5 ML UDC GT PRN (00:13)
[2017-09-03] MEDS: DIAZEPAM 5 MG TABLET GT PRN ×2 (00:14→23:40)
[2017-09-03 04:00] VITALS: BP 123/34
[2017-09-03] MEDS: INSULIN REGULAR, HUMAN 300 UNIT/3 ML VIAL SQ PRN ×4 (05:50→23:47)
--- NOTE | 2017-09-03 06:00 | NUR ---
Pt remains alert and oriented x 3 at this time. All needs attended to. Pt made aware of all plan of care.
--- NOTE | 2017-09-03 07:00 | NUR ---
RECEIVED PATIENT IN BED AWAKE, NO ACUTE DISTRESS NOTED. GTUBE INTACT, RUNNING GLUCERNA 1.2 50CC/HR X 22 HOURS, ON AT 2100 OFF AT 1900. NO RESIDUAL NOTED PER OTR VAN CDL TRUCK DRIVER. IV ACCESS ON THE LEFT FOREARM #22 INTACT ANDF PATENT. FC IN PLACE DRAINING CLEAR YELLOW URINE. ORAL SUCTION AT BEDSIDE PRN. NO COMPLAINTS OF PAIN/DISCOMFORT AT THIS TIME. WILL COTNINUE TO MONITOR CLOSELY.
[2017-09-03] MEDS ORDERED: HYDROCODONE/APAP 5-325MG TABLET PO PRN (07:15)
[2017-09-03 07:16] LABS: BASOPHILS # (AUTO) 0.1 K/uL (0.0-8.0); EOSINOPHILS # (AUTO) 0.5 K/uL (0.0-0.7); EOSINOPHILS % (AUTO) 4.5 % (0.0-7.0); HEMOGLOBIN 10.9 g/dL (10.9-14.3); LYMPHOCYTES # (AUTO) 2.2 K/uL (20.0-40.0); LYMPHOCYTES % (AUTO) 20.6 % (20.5-51.5); MEAN CORPUSCULAR HEMOGLOBIN 30.9 uug (24.7-32.8); MEAN CORPUSCULAR HGB CONC 34 g/dL (32.3-35.6); MEAN CORPUSCULAR VOLUME 90.9 fL (75.5-95.3); MONOCYTES # (AUTO) 0.8 K/uL (2.0-10.0); MONOCYTES % (AUTO) 7.9 % (0.0-11.0); NEUTROPHILS # (AUTO) 7.1 K/uL (1.8-8.9); PLATELET COUNT (AUTO) 247 K/uL (179-408); RED BLOOD CELL COUNT(AUTO) 3.53 MIL/uL (3.63-4.92); WHITE BLOOD COUNT (AUTO) 10.7 K/uL (3.8-11.8)
[2017-09-03 07:51] LABS: ALANINE AMINOTRANSFERASE 17 U/L (14-59); ALKALINE PHOSPHATASE 93 U/L (50-136); ASPARTATE AMINOTRANSFERASE 12 U/L (15-37); BILIRUBIN,DIRECT 0.1 mg/dL (0.0-0.2); BILIRUBIN,TOTAL 0.3 mg/dL (0.2-1.0); CARBON DIOXIDE 35 mmol/L (21-32); CHLORIDE 102 mmol/L (98-107); CREATININE 1.4 mg/dL (0.6-1.3); GLUCOSE 135 mg/dL (74-106); MAGNESIUM 2.1 mg/dL (1.8-2.4); PHOSPHOROUS 3.2 mg/dL (2.5-4.9); POTASSIUM 3.2 mmol/L (3.5-5.1); TOTAL PROTEIN, SERUM 6.6 g/dL (6.4-8.2); UREA NITROGEN, BLOOD 30 mg/dL (7-18)
[2017-09-03] MEDS ORDERED: Medication Not On Formulary EA (Glycopyrrolate 1 MG) GT SCH (08:00)
[2017-09-03] MEDS: ASPIRIN 325 MG TABLET GT SCH (08:54)
[2017-09-03] MEDS: NEOMY/POLYMYX B/HC OTIC SUSP 10 ML BOTTLE RIGHT EAR SCH ×4 (08:54→20:27)
[2017-09-03] MEDS: PANTOPRAZOLE SODIUM 40 MG VIAL IV SCH (08:54)
[2017-09-03] MEDS: ACIDOPHILUS/BULGARICUS CHEW TAB GT SCH ×2 (08:55→20:28)
[2017-09-03] MEDS: LINAGLIPTIN 5 MG TABLET GT SCH (08:55)
[2017-09-03] MEDS: FUROSEMIDE 40 MG TABLET GT SCH (08:55)
[2017-09-03] MEDS: AMLODIPINE 10 MG TABLET GT SCH (08:55)
[2017-09-03] MEDS: predniSONE 10 MG TABLET GT SCH (08:55)
[2017-09-03] MEDS: MULTIVITAMINS,THERAPEUTIC TABLET GT SCH (08:55)
[2017-09-03] MEDS: METOPROLOL TARTRATE 50 MG TABLET PO SCH ×2 (08:55→20:43)
[2017-09-03] MEDS ORDERED: NEOMY/POLYMYX B/HC OTIC SUSP 10 ML BOTTLE EACH EAR SCH (09:00)
[2017-09-03] MEDS ORDERED: CLOTRIMAZOLE 1% CREAM 30 GM TUBE TP SCH (09:00)
[2017-09-03] MEDS ORDERED: ASPIRIN 325 MG TABLET PO SCH (09:00)
[2017-09-03] MEDS ORDERED: Medication Not On Formulary EA (Lactobacillus Acidophilus (Acidophilus) 1 EACH) GT SCH (09:00)
[2017-09-03] MEDS: GLYCOPYRROLATE 1 MG TABLET GT SCH ×3 (09:08→16:59)
[2017-09-03] MEDS: PYRIDOSTIGMINE BROMIDE 60 MG TABLET GT SCH ×3 (09:08→16:59)
[2017-09-03] MEDS ORDERED: GLUCERNA 1.2 1000ML LIQUID GT PRN (09:19)
[2017-09-03] MEDS: CLOTRIMAZOLE 1% CREAM 30 GM TUBE TP SCH ×2 (10:43→20:26)
[2017-09-03] MEDS: HYDROCODONE/APAP 5-325MG TABLET PO PRN (10:44)
[2017-09-03 11:22] VITALS: BP 118/38
[2017-09-03] MEDS ORDERED: IV NORMAL SALINE 500 ML BAG IV ONE (12:30)
[2017-09-03] MEDS ORDERED: POTASSIUM CHLORIDE 20 MEQ TAB.PRT.SR PO ONE ×2 (12:30)
[2017-09-03] MEDS ORDERED: IV NORMAL SALINE 500 ML IV ONE (12:30)
[2017-09-03] MEDS ORDERED: POTASSIUM CHLORIDE 20 MEQ POWDER PACKET GT ONE (12:45)
[2017-09-03] MEDS: PIPERACILLIN/TAZOBACTAM/D5W 3.375 G in PREMIXED 1 EACH IV SCH ×2 (13:52→21:13)
--- NOTE | 2017-09-03 14:30 | NUR ---
SEEN AND EVALUATED BY [facility] MAY[facility] LOWERY WILL REMAIN NPO. CONTINUE TO MONITOR.
[2017-09-03 15:22] VITALS: BP 121/40
--- NOTE | 2017-09-03 18:10 | NUR ---
PATIENT ON BED AWAKE IN STABLE CONDITION. IV ACCESS ON LEFT FOREARM # 22 STILL INTACT AND PATENT. GTUBE INTACT AND RUNNING FEEDING ORDERED. WILL TURN OFF AT 1900 AND RESUME AT 2100. BG 144 2 UNITS OF REG INSULIN GIVEN, WELL TOLERATED. NO COMPLAINTS OF PAIN AND DISCOMFORT AT THIS TIME. CALL LIGHT WITHIN REACH. ALL NEEDS ATTENDED AND ANTICIPATED. WILL CONTINUE TO MONITOR CLOSELY.
[2017-09-03 19:30] VITALS: BP 116/47
--- NOTE | 2017-09-03 19:30 | NUR ---
Received patient from day shift nurse. Patient is awake, alert, no acute distress noted. Denies pain & SOB. Pertinent assessment completed. Noted with GT which is patent. Feeding to be turned back on at 2100. Patient is NPO. IV site is flushing well & locked. Vital signs within range at start of shift. Bed in low position & locked x2 side rails up. Call light within reach. Will continue to monitor through shift.
[2017-09-03] MEDS: MIRTAZAPINE 15 MG TABLET PO SCH (20:29)
[2017-09-03] MEDS: ATORVASTATIN 20 MG TABLET GT SCH (20:29)
[2017-09-03] MEDS: INSULIN GLARGINE,HUM 300 UNITS/3 ML CARTRIDGE SQ SCH (20:43)
[2017-09-03] MEDS ORDERED: DIAZEPAM 2 MG TABLET PO SCH (21:00)
[2017-09-03] MEDS ORDERED: ATORVASTATIN 20 MG TABLET PO SCH (21:00)
[2017-09-03] MEDS: GLUCERNA 1.2 1000ML LIQUID GT PRN (21:34)
[2017-09-04 03:33] VITALS: BP 137/55
[2017-09-04] MEDS: PIPERACILLIN/TAZOBACTAM/D5W 3.375 G in PREMIXED 1 EACH IV SCH ×3 (05:13→21:56)
[2017-09-04] MEDS: BLOOD SUGAR DIAGNOSTIC 1 EACH STRIP VI SCH ×4 (05:19→23:41)
--- NOTE | 2017-09-04 05:58 | NUR ---
Patient stable through shift with no acute distress. All needs attended to. GT care provided. Howell care provided. Patient kept clean & dry, changed per soiling. All meds administered per MD order. Patient compliant with care. No s/s of hyper/hypoglycemia noted. Blood sugar this AM at 147. Will endorse to day shift nurse to cover with insulin per sliding scale. Safety measures maintained. Call light in reach. Will endorse to day shift nurse.
[2017-09-04 07:16] LABS: BASOPHILS # (AUTO) 0.1 K/uL (0.0-8.0); BASOPHILS % (AUTO) 0.9 % (0.0-2.0); EOSINOPHILS # (AUTO) 0.5 K/uL (0.0-0.7); EOSINOPHILS % (AUTO) 4.8 % (0.0-7.0); HEMATOCRIT 28.4 % (31.2-41.9); HEMOGLOBIN 9.6 g/dL (10.9-14.3); LYMPHOCYTES # (AUTO) 2.1 K/uL (20.0-40.0); MEAN CORPUSCULAR HEMOGLOBIN 31.2 uug (24.7-32.8); MEAN CORPUSCULAR HGB CONC 34 g/dL (32.3-35.6); MONOCYTES # (AUTO) 0.8 K/uL (2.0-10.0); MONOCYTES % (AUTO) 8.1 % (0.0-11.0); NEUTROPHILS # (AUTO) 6.2 K/uL (1.8-8.9); NEUTROPHILS % (AUTO) 64.2 % (38.5-71.5); PLATELET COUNT (AUTO) 213 K/uL (179-408); RED BLOOD CELL COUNT(AUTO) 3.09 MIL/uL (3.63-4.92); WHITE BLOOD COUNT (AUTO) 9.6 K/uL (3.8-11.8)
[2017-09-04 07:32] LABS: CARBON DIOXIDE 32 mmol/L (21-32); CHLORIDE 105 mmol/L (98-107); CREATININE 1.4 mg/dL (0.6-1.3); GLUCOSE 145 mg/dL (74-106); POTASSIUM 3.5 mmol/L (3.5-5.1); UREA NITROGEN, BLOOD 30 mg/dL (7-18)
--- NOTE | 2017-09-04 08:00 | NUR ---
AWAKE ALERT X3 COOPERATE WELL NO PAIN OR SOB ON FALL /ASPIRATION PRECAUTION CONTINUE GT FEEDING TOM WELL NO N/V RESTING WELL WITH CALL LIGHT IN REACH AND BED ALARM ON
[2017-09-04] MEDS: INSULIN REGULAR, HUMAN 300 UNIT/3 ML VIAL SQ PRN ×3 (08:34→17:12)
[2017-09-04] MEDS: INSULIN GLARGINE,HUM 300 UNITS/3 ML CARTRIDGE SQ SCH ×2 (08:35→22:07)
[2017-09-04] MEDS: NEOMY/POLYMYX B/HC OTIC SUSP 10 ML BOTTLE RIGHT EAR SCH ×4 (08:36→21:57)
[2017-09-04] MEDS: Z GUARD REMEDY PASTE 57 GM TUBE TOP PRN (08:39)
[2017-09-04] MEDS: LINAGLIPTIN 5 MG TABLET GT SCH (09:09)
[2017-09-04] MEDS: ASPIRIN 325 MG TABLET GT SCH (09:09)
[2017-09-04] MEDS: ACIDOPHILUS/BULGARICUS CHEW TAB GT SCH ×2 (09:09→21:54)
[2017-09-04] MEDS: ACETAMINOPHEN 325 MG TABLET GT PRN (09:09)
[2017-09-04] MEDS: MULTIVITAMINS,THERAPEUTIC TABLET GT SCH (09:10)
[2017-09-04] MEDS: AMLODIPINE 10 MG TABLET GT SCH (09:10)
[2017-09-04] MEDS: FUROSEMIDE 40 MG TABLET GT SCH (09:10)
[2017-09-04] MEDS: METOPROLOL TARTRATE 50 MG TABLET PO SCH ×2 (09:10→21:54)
[2017-09-04] MEDS: PANTOPRAZOLE SODIUM 40 MG VIAL IV SCH (09:11)
[2017-09-04] MEDS: PYRIDOSTIGMINE BROMIDE 60 MG TABLET GT SCH ×3 (09:11→17:03)
[2017-09-04] MEDS: GLYCOPYRROLATE 1 MG TABLET GT SCH ×3 (09:11→17:04)
[2017-09-04] MEDS: CLOTRIMAZOLE 1% CREAM 30 GM TUBE TP SCH ×2 (09:13→21:58)
[2017-09-04] MEDS: predniSONE 10 MG TABLET GT SCH (09:15)
--- NOTE | 2017-09-04 11:00 | NUR ---
LYNNETTE KRUEGER SEEN PATIENT AND ORDER IN CHART BOLUS OF NS 250ML GIVEN ORDER
[2017-09-04 11:22] VITALS: BP 102/64
[2017-09-04] MEDS ORDERED: IV NORMAL SALINE 250 ML BAG IV ONE (12:15)
--- NOTE | 2017-09-04 13:00 | NUR ---
FAMILY AT BEDSIDE RESTING WELL NO PAIN
--- NOTE | 2017-09-04 15:00 | NUR ---
IV SITE INFILTRATE D/C IV AND WARM COMPRESS ON LFA
[2017-09-04 15:12] VITALS: BP 122/46
--- NOTE | 2017-09-04 16:30 | NUR ---
START A NEW IV LINE ON RFA #22 MOST OF THE TIME RESTING QUIET NO PAIN OR SOB
--- NOTE | 2017-09-04 18:00 | NUR ---
STABLE HEMODYNAMIC STATUS PAIN UNDER CONTROL NO ACUTE DISTRESS SAFETY MEASURE PROVIDED CALL LIGHT IN REACH
--- NOTE | 2017-09-04 19:20 | NUR ---
RECEIVED PT AWAKE, ALERT, ORIENTEDX3. PT SHOWS NO SIGNS OF DISTRESS. PT IV INTACT AND PATENT. G-TUBE FEEDING FOR THE PT CURRENTLY STOPPED FOR NOW WILL CONTINUE AT 2200H. CALL LIGHT WITHIN REACH,. SAFETY AND COMFORT PROVIDED. WILL CONTINUE TO MONITOR.
[2017-09-04 19:25] VITALS: BP 131/52
[2017-09-04] MEDS: MIRTAZAPINE 15 MG TABLET PO SCH (21:53)
[2017-09-04] MEDS: ATORVASTATIN 20 MG TABLET GT SCH (21:54)
[2017-09-04] MEDS: GLUCERNA 1.2 1000ML LIQUID GT PRN (22:20)
[2017-09-05 03:35] VITALS: BP 129/49
[2017-09-05] MEDS: PIPERACILLIN/TAZOBACTAM/D5W 3.375 G in PREMIXED 1 EACH IV SCH ×3 (05:06→21:40)
[2017-09-05] MEDS: BLOOD SUGAR DIAGNOSTIC 1 EACH STRIP VI SCH ×4 (05:52→23:33)
[2017-09-05 06:03] LABS: BASOPHILS # (AUTO) 0.1 K/uL (0.0-8.0); BASOPHILS % (AUTO) 0.9 % (0.0-2.0); EOSINOPHILS # (AUTO) 0.4 K/uL (0.0-0.7); EOSINOPHILS % (AUTO) 4.1 % (0.0-7.0); HEMATOCRIT 30.3 % (31.2-41.9); HEMOGLOBIN 10.2 g/dL (10.9-14.3); LYMPHOCYTES % (AUTO) 19.6 % (20.5-51.5); MEAN CORPUSCULAR HEMOGLOBIN 30.4 uug (24.7-32.8); MEAN CORPUSCULAR HGB CONC 34 g/dL (32.3-35.6); MEAN CORPUSCULAR VOLUME 90.1 fL (75.5-95.3); MONOCYTES # (AUTO) 0.7 K/uL (2.0-10.0); NEUTROPHILS # (AUTO) 6.9 K/uL (1.8-8.9); NEUTROPHILS % (AUTO) 68.4 % (38.5-71.5); PLATELET COUNT (AUTO) 227 K/uL (179-408); RED BLOOD CELL COUNT(AUTO) 3.37 MIL/uL (3.63-4.92)
[2017-09-05 06:06] LABS: CARBON DIOXIDE 33 mmol/L (21-32); CHLORIDE 106 mmol/L (98-107); CREATININE 1.4 mg/dL (0.6-1.3); GLUCOSE 129 mg/dL (74-106); POTASSIUM 3.3 mmol/L (3.5-5.1); UREA NITROGEN, BLOOD 28 mg/dL (7-18)
[2017-09-05] MEDS: PANTOPRAZOLE ORAL SUSPENSION 40 MG SUSPDR.PKT GT SCH ×2 (06:11→08:16)
--- NOTE | 2017-09-05 06:33 | NUR ---
PT SLEPT THROUGHOUT THE SHIFT. PT SHOWS NO SIGNS OF DISTRESS. PRESCRIBED MEDICATION GIVEN AND PT TOLERATED IT WELL. IV INTACT AND PATENT. MENDOZA CATHETER INTACT. PEG TUBE INTACT AND PT TOLERATED THE FEEDING. SAFETY AND COMFORT PROVIDED. WILL ENDORSE ACCORDINGLY TO INCOMING NURSE FOR CONTINUITY OF CARE.
--- NOTE | 2017-09-05 08:00 | NUR ---
AWAKE ALERT COOPERATE WELL NO SOB OR PAIN AT THIS TIME CONTINUE NPO GT FEEDING WITH JEVITY TOM WELL NO N/V , KEEP HOB UP AT ALL TIME HL INPLACE RT FA #[id number] ON ASPIRATION AND FALL PRECAUTION CALL LIGHT IN REACH AND REMIND TO CALL WHEN NEEDED
[2017-09-05] MEDS: PYRIDOSTIGMINE BROMIDE 60 MG TABLET GT SCH ×3 (08:15→16:52)
[2017-09-05] MEDS: GLYCOPYRROLATE 1 MG TABLET GT SCH ×3 (08:15→16:53)
[2017-09-05] MEDS: ASPIRIN 325 MG TABLET GT SCH (08:16)
[2017-09-05] MEDS: MULTIVITAMINS,THERAPEUTIC TABLET GT SCH (08:16)
[2017-09-05] MEDS: LINAGLIPTIN 5 MG TABLET GT SCH (08:16)
[2017-09-05] MEDS: FUROSEMIDE 40 MG TABLET GT SCH (08:16)
[2017-09-05] MEDS: predniSONE 10 MG TABLET GT SCH (08:16)
[2017-09-05] MEDS: METOPROLOL TARTRATE 50 MG TABLET PO SCH ×2 (08:16→21:37)
[2017-09-05] MEDS: ACIDOPHILUS/BULGARICUS CHEW TAB GT SCH ×2 (08:16→21:35)
[2017-09-05] MEDS: AMLODIPINE 10 MG TABLET GT SCH (08:17)
[2017-09-05] MEDS: Z GUARD REMEDY PASTE 57 GM TUBE TOP PRN (08:17)
[2017-09-05] MEDS: CLOTRIMAZOLE 1% CREAM 30 GM TUBE TP SCH ×2 (08:17→21:38)
[2017-09-05] MEDS: NEOMY/POLYMYX B/HC OTIC SUSP 10 ML BOTTLE RIGHT EAR SCH ×4 (08:18→21:37)
[2017-09-05] MEDS: INSULIN GLARGINE,HUM 300 UNITS/3 ML CARTRIDGE SQ SCH ×2 (08:20→21:39)
[2017-09-05] MEDS: HYDROCODONE/APAP 5-325MG TABLET PO PRN (09:19)
[2017-09-05] MEDS ORDERED: POTASSIUM CHLORIDE 20 MEQ TAB.PRT.SR PO ONE (10:30)
[2017-09-05] MEDS ORDERED: POTASSIUM CHLORIDE 20 MEQ POWDER PACKET PO ONE (10:45)
[2017-09-05 11:10] VITALS: BP 120/52
[2017-09-05] MEDS: INSULIN REGULAR, HUMAN 300 UNIT/3 ML VIAL SQ PRN ×2 (12:02→17:00)
[2017-09-05 15:32] VITALS: BP 120/44
--- NOTE | 2017-09-05 17:30 | NUR ---
MOST OF THE TIME RESTING WELL NO ACUTE DISTRESS NO ASPIRATION SAFETY MEASURE PROVIDED BED ALARM ON AND CALL LIGHT IN REACH AND TOM GT FEEDING WELL
[2017-09-05 19:00] VITALS: BP 141/51
--- NOTE | 2017-09-05 19:10 | NUR ---
RECEIVED PT AWAKE, ALERT,AND ORIENTEDX2. PT SHOWS NO SIGNS OF DISTRESS. PT MENDOZA CATHETER INTACT.IV INTACT AND PATENT. PEG IN PLACE AND INTACT. CALL LIGHT WITHIN REACH. BED ALARM ON AND IN LOW POSITION AND SIDE RAILS UPX2. WILL CONTINUE TO MONITOR.
--- NOTE | 2017-09-05 21:00 | NUR ---
PT FAMILY AT BEDSIDE FROM 1999H-2100H. THEY ASKED ABOUT THE CARE OF THE PT. FAMILY UNDERSTAND WELL THE PT. CHARGE NURSE TALKED WITH THE FAMILY. PT STABLE. WILL CONTINUE TO MONITOR THE PT.
[2017-09-05] MEDS: MIRTAZAPINE 15 MG TABLET PO SCH (21:36)
[2017-09-05] MEDS: ATORVASTATIN 20 MG TABLET GT SCH (21:36)
[2017-09-05] MEDS: GLUCERNA 1.2 1000ML LIQUID GT PRN (22:07)
[2017-09-05] MEDS: DIAZEPAM 5 MG TABLET GT PRN (23:58)
[2017-09-06] MEDS: GUAIFENESIN/DEXTROMETHORPHAN 5 ML UDC GT PRN (00:02)
--- NOTE | 2017-09-06 00:02 | NUR ---
ADMINISTERED [facility] [id number] EX 03/2019 GUAIFENESIN SYRUP AND DEXTROMETHORPHAN 200MG/20MG PER 10ML.GAVE ONE UNITAS DOCTOR PRESCRIBED 10ML ONLY. PYXIS SHOWS TO GET 2 UNIT. GOT 2 UNITS. CHARGE NURSE AWARE AND GAVE HER ONE UNIT OF THE MEDICATION . CHARGE NURSE SAID SHE WILL TALKED WITH THE PHARMACIST REGARDING THE MEDICATION AND WILL GIVE IT TO WHOEVER IS THE PHARMACIST ON DUTY. GAVE RIGHT DOSE AND MEDICATION TO THE PT. PT STABLE AND WILL CONTINUE TO MONITOR.
[2017-09-06 04:00] VITALS: BP 130/68
[2017-09-06] MEDS: PIPERACILLIN/TAZOBACTAM/D5W 3.375 G in PREMIXED 1 EACH IV SCH ×3 (05:28→21:16)
[2017-09-06] MEDS: BLOOD SUGAR DIAGNOSTIC 1 EACH STRIP VI SCH ×3 (06:04→17:32)
--- NOTE | 2017-09-06 06:18 | NUR ---
PT SLEPT THROUGHOUT THE SHIFT. PT SHOWS NO SIGNS OF DISTRESS.PRESCRIBED MEDICATION GIVEN AND PT TOLERATED IT WELL. MENDOZA CATHETER INTACT.IV INTACT AND PATENT. G-TUBE FEEDING ONGOING AND PT TOLERATED IT WELL. CALL LIGHT WITHIN REACH. BED ALARM ON. SAFETY AND COMFORT PROVIDED. WILL ENDORSE ACCORDINGLY FOR CONTINUITY OF CARE.
[2017-09-06] MEDS ORDERED: GUAIFENESIN/D-METHORPHAN 10 ML UDC (DIABETIC FORMULA) GT PRN (07:05)
[2017-09-06] MEDS ORDERED: GUAIFENESIN/DEXTROMETHORPHAN 5 ML UDC GT PRN (07:08)
[2017-09-06] MEDS: PYRIDOSTIGMINE BROMIDE 60 MG TABLET GT SCH ×3 (08:04→17:11)
[2017-09-06] MEDS: ASPIRIN 325 MG TABLET GT SCH (08:05)
[2017-09-06] MEDS: ACIDOPHILUS/BULGARICUS CHEW TAB GT SCH ×2 (08:05→21:10)
[2017-09-06] MEDS: GLYCOPYRROLATE 1 MG TABLET GT SCH ×3 (08:05→17:11)
[2017-09-06] MEDS: FUROSEMIDE 40 MG TABLET GT SCH (08:05)
[2017-09-06] MEDS: predniSONE 10 MG TABLET GT SCH (08:05)
[2017-09-06] MEDS: LINAGLIPTIN 5 MG TABLET GT SCH (08:05)
[2017-09-06] MEDS: PANTOPRAZOLE ORAL SUSPENSION 40 MG SUSPDR.PKT GT SCH (08:05)
[2017-09-06] MEDS: NEOMY/POLYMYX B/HC OTIC SUSP 10 ML BOTTLE RIGHT EAR SCH ×4 (08:06→21:11)
[2017-09-06] MEDS: MULTIVITAMINS,THERAPEUTIC TABLET GT SCH (08:06)
[2017-09-06] MEDS: AMLODIPINE 10 MG TABLET GT SCH (08:13)
[2017-09-06] MEDS: METOPROLOL TARTRATE 50 MG TABLET PO SCH ×2 (08:14→21:10)
[2017-09-06] MEDS: INSULIN GLARGINE,HUM 300 UNITS/3 ML CARTRIDGE SQ SCH ×2 (08:15→21:19)
[2017-09-06] MEDS: CLOTRIMAZOLE 1% CREAM 30 GM TUBE TP SCH ×2 (08:16→21:16)
[2017-09-06 11:03] VITALS: BP 133/46
[2017-09-06] MEDS: INSULIN REGULAR, HUMAN 300 UNIT/3 ML VIAL SQ PRN ×2 (11:59→17:20)
[2017-09-06 15:06] VITALS: BP 121/49
--- NOTE | 2017-09-06 18:36 | NUR ---
PLAN FOR TODAY WAS FOR PT TO DISCHARGE TO [facility] IN [facility]. PT'S INSURANCE DIDN'T AUTHORIZE THE TRANSFER FOR TODAY. PT WILL CONTINUE TO STAY AT THE HOSPITAL. EXIT CARE PACKET COMPLETED. PT HAS NO SIGNS OF RESPIRATORY DISTRESS, AOX4, CALM, COOPERATIVE, MEDICATION COMPLIANT, IV INTACT, PT SUCTIONS HERSELF, AT BEDSIDE. PT REQUESTED MEDICAL RECORDS, MEDICAL RECORDS WERE PROVIDED. CONTINUE TO MONITOR PT.
--- NOTE | 2017-09-06 19:15 | NUR ---
RECEIVED PT AWAKE, ALERT,AND ORIENTEDX3 PT SHOWS NO SIGNS OF DISTRESS. PT WITH OCCASIONAL COUGH. MENDOZA INTACT. IV INTACT.CALL LIGHT WITHIN REACH. SAFETY AND COMFORT PROVIDED. WILL CONTINUE TO MONITOR.
[2017-09-06 20:15] VITALS: BP 149/69
[2017-09-06] MEDS: ATORVASTATIN 20 MG TABLET GT SCH (21:10)
[2017-09-06] MEDS: MIRTAZAPINE 15 MG TABLET PO SCH (21:10)
[2017-09-06] MEDS: GLUCERNA 1.2 1000ML LIQUID GT PRN (21:52)
[2017-09-07] MEDS: BLOOD SUGAR DIAGNOSTIC 1 EACH STRIP VI SCH ×4 (00:01→17:23)
[2017-09-07] MEDS: DIAZEPAM 5 MG TABLET GT PRN (00:02)
[2017-09-07 04:00] VITALS: BP 166/55
[2017-09-07] MEDS: PIPERACILLIN/TAZOBACTAM/D5W 3.375 G in PREMIXED 1 EACH IV SCH ×3 (05:04→21:36)
--- NOTE | 2017-09-07 06:07 | NUR ---
PT SLEPT THROUGHOUT THE SHIFT. PT SHOWS NO SIGNS OF DISTRESS. PRESCRIBED MEDICATION GIVEN AND PT TOLERATED IT WELL.CALL LIGHT WITHIN REACH. MENDOZA CATHTER INTACT.IV INTACT. PT TOLERATING G-TUBE FEED.SAFETY AND COMFORT PROVIDED. WILL ENDORSE ACCORDINGLY FOR CONTINUITY OF CARE.
[2017-09-07] MEDS: ACETAMINOPHEN 325 MG TABLET GT PRN (06:57)
[2017-09-07] MEDS: PYRIDOSTIGMINE BROMIDE 60 MG TABLET GT SCH ×3 (07:25→17:22)
[2017-09-07] MEDS: GLYCOPYRROLATE 1 MG TABLET GT SCH ×3 (07:26→17:22)
[2017-09-07] MEDS: ASPIRIN 325 MG TABLET GT SCH (08:00)
[2017-09-07] MEDS: AMLODIPINE 10 MG TABLET GT SCH (08:00)
[2017-09-07] MEDS: NEOMY/POLYMYX B/HC OTIC SUSP 10 ML BOTTLE RIGHT EAR SCH ×4 (08:00→21:30)
[2017-09-07] MEDS: MULTIVITAMINS,THERAPEUTIC TABLET GT SCH (08:00)
[2017-09-07] MEDS: ACIDOPHILUS/BULGARICUS CHEW TAB GT SCH ×2 (08:00→21:25)
[2017-09-07] MEDS: predniSONE 10 MG TABLET GT SCH (08:00)
[2017-09-07] MEDS: METOPROLOL TARTRATE 50 MG TABLET PO SCH ×2 (08:00→21:00)
[2017-09-07] MEDS: LINAGLIPTIN 5 MG TABLET GT SCH (08:00)
[2017-09-07] MEDS: CLOTRIMAZOLE 1% CREAM 30 GM TUBE TP SCH ×2 (08:01→21:36)
[2017-09-07] MEDS: FUROSEMIDE 40 MG TABLET GT SCH (08:01)
[2017-09-07] MEDS: PANTOPRAZOLE ORAL SUSPENSION 40 MG SUSPDR.PKT GT SCH (08:01)
[2017-09-07] MEDS: INSULIN GLARGINE,HUM 300 UNITS/3 ML CARTRIDGE SQ SCH ×2 (08:03→21:00)
[2017-09-07 11:30] VITALS: BP 153/47
[2017-09-07] MEDS: INSULIN REGULAR, HUMAN 300 UNIT/3 ML VIAL SQ PRN ×2 (12:01→17:25)
[2017-09-07 16:00] VITALS: BP 130/52
--- NOTE | 2017-09-07 18:41 | NUR ---
PT IS CALM, COOPERATIVE, GTUBE AND IV PATENT, MEDICATION COMPLIANT. NO SIGNS OF ACUTE DISTRESS. CONTINUE TO MONITOR.
[2017-09-07 20:03] VITALS: BP 143/58
[2017-09-07] MEDS: MIRTAZAPINE 15 MG TABLET PO SCH (21:26)
[2017-09-07] MEDS: ATORVASTATIN 20 MG TABLET GT SCH (21:26)
[2017-09-07] MEDS: GLUCERNA 1.2 1000ML LIQUID GT PRN (22:15)
[2017-09-08 04:41] VITALS: BP 149/60
[2017-09-08] MEDS: BLOOD SUGAR DIAGNOSTIC 1 EACH STRIP VI SCH ×3 (05:45→13:07)
[2017-09-08] MEDS: PIPERACILLIN/TAZOBACTAM/D5W 3.375 G in PREMIXED 1 EACH IV SCH (05:45)
--- NOTE | 2017-09-08 08:30 | NUR ---
Received pt in bed awake, alert, oriented x2-3, verbally responsive, gt in place at continues feeding glucerna, at 50/ml/h, F/C in place draining yellow urine, no c/o discomfort at tghis time.
[2017-09-08] MEDS: METOPROLOL TARTRATE 50 MG TABLET PO SCH (09:00)
[2017-09-08] MEDS: LINAGLIPTIN 5 MG TABLET GT SCH (09:54)
[2017-09-08] MEDS: GLYCOPYRROLATE 1 MG TABLET GT SCH ×2 (09:54→13:08)
[2017-09-08] MEDS: ASPIRIN 325 MG TABLET GT SCH (09:54)
[2017-09-08] MEDS: predniSONE 10 MG TABLET GT SCH (09:57)
[2017-09-08] MEDS: AMLODIPINE 10 MG TABLET GT SCH (09:57)
[2017-09-08] MEDS: FUROSEMIDE 40 MG TABLET GT SCH (09:58)
[2017-09-08] MEDS: PYRIDOSTIGMINE BROMIDE 60 MG TABLET GT SCH ×2 (10:00→12:00)
[2017-09-08] MEDS: ACIDOPHILUS/BULGARICUS CHEW TAB GT SCH (10:00)
[2017-09-08] MEDS: MULTIVITAMINS,THERAPEUTIC TABLET GT SCH (10:01)
[2017-09-08] MEDS: PANTOPRAZOLE ORAL SUSPENSION 40 MG SUSPDR.PKT GT SCH (10:01)
[2017-09-08] MEDS: CLOTRIMAZOLE 1% CREAM 30 GM TUBE TP SCH (10:08)
[2017-09-08] MEDS: INSULIN GLARGINE,HUM 300 UNITS/3 ML CARTRIDGE SQ SCH (10:11)
[2017-09-08 11:41] VITALS: BP 126/63
--- NOTE | 2017-09-08 12:00 | NUR ---
Pt in bed repositioned for comfort, no distress, respiration even nonlabored, RA sat 96%, no distress, call light in reach.
[2017-09-08] MEDS: INSULIN REGULAR, HUMAN 300 UNIT/3 ML VIAL SQ PRN (13:12)
[2017-09-08 15:26] VITALS: BP 144/65
--- NOTE | 2017-09-08 16:31 | NUR ---
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
== END 2017-09-08 17:00 | DRG 193 ==
LOC: MED 15:24
PROVIDERS: ADMIT Nurse Practitioner Acute Care; ATTEND Nurse Practitioner Acute Care
DX: J15.9 Unspecified bacterial pneumonia (principal); J96.01 Acute respiratory failure with hypoxia; N17.0 Acute kidney failure with tubular necrosis; I69.392 Facial weakness following cerebral infarction; R13.10 Dysphagia, unspecified; I69.991 Dysphagia following unspecified cerebrovascular disease; E11.9 Type 2 diabetes mellitus without complications; Z79.84 Long term (current) use of oral hypoglycemic drugs; I25.10 Atherosclerotic heart disease of native coronary artery without angina pectoris; G70.00 Myasthenia gravis without (acute) exacerbation; D63.8 Anemia in other chronic diseases classified elsewhere; Z88.1 Allergy status to other antibiotic agents; Z93.1 Gastrostomy status; Z87.11 Personal history of peptic ulcer disease; I10 Essential (primary) hypertension
CPT/HCPCS: 36415; 71045; 83735; 84100; 85025; 92523; C9113; J1815; J2543; J7040; J7050; J7512